=== PATIENT | female | born 1995 ===

== ENCOUNTER 2020-11-09 06:20 | Inpatient (IN) | payer OTHER ==
[2020-11-09] MEDS ORDERED: Sodium Chloride 0.9% 10 ML Syringe FLUSH PRN (06:58)
[2020-11-09] MEDS ORDERED: Sodium Chloride 0.9% 10 ML SDV IV PRN (06:58)
[2020-11-09] MEDS ORDERED: Lactated Ringers 1,000 ML IV SCH (07:00)
[2020-11-09] MEDS ORDERED: Terbutaline 1 MG/ML SDV SUBCUT ONE ×2 (07:26→08:41)
[2020-11-09] MEDS ORDERED: Terbutaline 1 MG/ML SDV ONE (08:33)
--- NOTE | 2020-11-09 09:30 | PCM.OPNOTE ---
- General Post-Op/Procedure Note Date of Surgery/Procedure: 11/09/20 Operative Procedure(s): External cephalic version Findings: Baby in nile breech presentation, baby's head maternal right, normal appearing amniotic fluid, anterior placenta. Unsuccessful after multiple attempts. heart rate reassuring throughout procedure. Pre Op Diagnosis: Breech presentation Post-Op Diagnosis: Breech presentation Anesthesia Technique: Other (see below) (None) Primary Surgeon: Collin Mcintyre Sex Worker Or Escort: Malina Gutierrez Pathology: None EBL in mLs: 0 Complications: None Condition: Good Free Text/Narrative:: 24yo at 37w0d with breech presentation presenting for external cephalic version. Patient found to have nile breech presentation. Growth US in the office with EFW 83%, normal CLIFF and anterior placenta. Discussed risk and benefits of ex ternal cephalic version vs. primary , she desired to proceed with external cephalic version. Reviewed risk of distress, progression in labor, placenta abruption or ROM with the procedure and needing urgent delivery. Consent signed and questions answered. Bedside US confirmed nile breech presentation. She was given terbutaline prior to procedure. She declined epidural anesthesia. Baby oil was applied to the patient abdomen. Multiple attempts to rotate the baby clockwise and counter clockwise, however the breech was engaged in the pelvis and there was limited movement. heart rate was 140-150s through procedure. Procedure was terminated, plan for primary at 39 weeks, discussed with patient concerning signs. Will monitor baby closely for the next few hours.
--- NOTE | 2020-11-09 10:23 | US ---
INDICATION: Attempted external version. TECHNIQUE: Limited transabdominal two-dimensional grayscale ultrasound examination for attempted external version. COMPARISON: None FINDINGS: There is a 3rd trimester living fetus in breech lie. heart rate is measured 153 beats per minute. The attempted external version was not successful. IMPRESSION: Unsuccessful attempted external version of 3rd trimester fetus. Dictated by Delgado Maria MD @ 11/09/2020 10:22:06 AM (Electronically Signed)
== END 2020-11-09 10:45 | disposition home or self-care (01) | DRG 833 ==
LOC: MW.OB 06:20
PROVIDERS: ADMIT Obstetrics & Gynecology; ATTEND Obstetrics & Gynecology
DX: O32.1XX0 Maternal care for breech presentation, not applicable or unspecified (principal); Z3A.37 37 weeks gestation of pregnancy; Z20.822 Contact with and (suspected) exposure to COVID-19
CPT/HCPCS: 36415; 59025; 59412; 76815; 76815-26; 85027; 86850; 86900; 86901; J3105; U0002

== ENCOUNTER 2020-11-21 13:09 | Inpatient (IN) | payer OTHER ==
[2020-11-21] MEDS ORDERED: Butorphanol 1 MG/ML SDV IVPUSH PRN (13:38)
[2020-11-21] MEDS ORDERED: Methylergonovine 0.2 MG/1 ML Amp IM PRN ×2 (13:38→18:43)
[2020-11-21] MEDS ORDERED: Tranexamic Acid 1,000 MG in Sodium Chloride 0.9% 100 ML IV PRN ×2 (13:38→18:43)
[2020-11-21] MEDS ORDERED: Nalbuphine 10 MG/1 ML Vial IVPUSH PRN (13:38)
[2020-11-21] MEDS ORDERED: Lidocaine 1% 50 ML MDV INJECT PRN (13:38)
[2020-11-21] MEDS ORDERED: Carboprost Tromethamine 250 MCG/1 ML Amp IM PRN (13:38)
[2020-11-21] MEDS ORDERED: Sodium Chloride 0.9% 10 ML Syringe FLUSH PRN (13:38)
[2020-11-21] MEDS ORDERED: Sodium Chloride 0.9% 2.5 ML Syringe FLUSH PRN (13:38)
[2020-11-21] MEDS ORDERED: Sodium Chloride 0.9% 10 ML SDV IV PRN (13:38)
[2020-11-21] MEDS ORDERED: Water For Irrigation,Sterile 1,000 ML Container IRR PRN (13:38)
[2020-11-21] MEDS ORDERED: Ondansetron 4 MG/2 ML SDV IVPUSH PRN (13:38)
[2020-11-21] MEDS ORDERED: Oxytocin/0.9 % Sodium Chloride 30 UNIT/500 ML BAG IV SCH (13:45)
[2020-11-21] MEDS: Lactated Ringers 1,000 ML IV SCH ×3 (14:17→21:09)
[2020-11-21 15:11] LABS: BLOOD UREA NITROGEN,BUN 6 mg/dL (7.0-18.0); CARBON DIOXIDE,CO2 23.8 mmol/L (21.0-32.0); CHLORIDE,CL 103 mmol/L (98-107); GLUCOSE RANDOM 73 mg/dL (74-106); POTASSIUM,K 3.9 mmol/L (3.5-5.1); SODIUM,NA 138 mmol/L (136-145)
[2020-11-21] MEDS ORDERED: fentaNYL 100 MCG/2 ML SDV ONE (16:41)
[2020-11-21] MEDS ORDERED: Morphine PF 10 MG/10 ML SDV ONE (16:41)
--- NOTE | 2020-11-21 16:41 | PCM.LDHP ---
L&D History of Present Illness - General Date of Service: 11/21/20 Admit Problem/Dx: Patient Status Order with Admit Dx/Problem 11/21/20 13:10 Patient Status [ADT] Routine Admission Diagnosis/Problem Admission Diagnosis/Problem - History of Present Illness Introduction:: 24yo at 38w5d ZOILA 11/30/20 by 12w6d US presenting with chills and contractions. Patient reports this morning starting noticing chills, this started suddenly, was feeling well yesterday. She also starting noticing stronger and more consistent contractions q1-2min. Denies leakage of fluid. Has some dysuria. was complicated by breech presentation, unsuccessful ECV at 37weeks. EFW 83% on US. She is GBS positive. 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 (See Below) Other OB/BYN History: 2015 - Abnormal PAP Musculoskeletal History: Reports: None Neurological History: Reports: None Psychiatric History: Reports: None Endocrine/Metabolic History: Reports: None Hematologic History: Reports: None Immunologic History: Reports: None Oncologic (Cancer) History: Reports: None Dermatologic History: Reports: Other (See Below) Other Dermatologic History: Acne - Infectious Disease History Infectious Disease History: Reports: Human Papilloma Virus (HPV) - Past Surgical History Head Surgeries/Procedures: Reports: None HEENT Surgical History: Reports: None Cardiovascular Surgical History: Reports: None Respiratory Surgical History: Reports: None GI Surgical History: Reports: None Female Surgical History: Reports: None Endocrine Surgical History: Reports: None Neurological Surgical History: Reports: None Musculoskeletal Surgical History: Reports: None Oncologic Surgical History: Reports: None Dermatological Surgical History: Reports: None Social & Family History - Family History HEENT: Reports: None Cardiac: Reports: Bypass, Hypertension Respiratory: Reports: None GI: Reports: None : Reports: None OBGYN: Reports: None Musculoskeletal: Reports: None Neurological: Reports: Alzheimers Disease, Parkinson's Psychiatric: Reports: None Endocrine/Metabolic: Reports: Diabetes, type II Hematologic: Reports: None Immunologic: Reports: None Dermatologic: Reports: None Oncologic: Reports: Breast, Colon H&P Review of Systems - Review of Systems: Review Of Systems: See Below General: Reports: Fever, Chills HEENT: Reports: No Symptoms Pulmonary: Reports: No Symptoms Cardiovascular: Reports: No Symptoms Gastrointestinal: Reports: No Symptoms Genitourinary: Reports: Dysuria, Urgency Musculoskeletal: Reports: No Symptoms Skin: Reports: No Symptoms Psychiatric: Reports: No Symptoms Neurological: Reports: No Symptoms Hematologic/Lymphatic: Reports: No Symptoms Immunologic: Reports: No Symptoms L&D Exam - Exam Exam: See Below - Vital Signs Weight: 155 lb - OB Specific Contraction Intensity: Moderate Movement: Active Heart Tones per Min: 170 Heart Rate (FHR) Variability: Moderate (6-25 bpm) Presentation: Breech - Johnson Score Johnson Score Cervix Position: Midposition Johnson Score Consistency: Medium Johnson Score Effacement: 31-50% Johnson Score Dilation: 1-2 cm Johnson Score Infant's Station: -3 Johnson Score Total: 4 - Exam General: Alert, Oriented, Cooperative HEENT: Conjunctiva Clear, EACs Clear, Mucosa Moist & [place] Neck: Supple, Trachea Midline Lungs: Clear to Auscultation, Normal Respiratory Effort Cardiovascular: Regular Rate, Regular Rhythm GI/Abdominal Exam: Normal Bowel Sounds, Soft, Non-Tender, No Distention Genitourinary: Normal external exam Back Exam: Normal Inspection Extremities: Normal Inspection, Normal Range of Motion, Non-Tender, No Pedal Edema Skin: Warm, Dry, Intact Psychiatric: Alert, Normal Affect, Normal Mood - Patient Data Lab Results Last 24 hrs: Laboratory Results - last 24 hr 11/21/20 11/21/20 11/21/20 Range/Units 14:25 14:32 14:32 WBC 18.31 H (4.0-11.0) K/uL RBC 4.05 L (4.30-5.90) M/uL Hgb 11.9 L (12.0-16.0) g/dL Hct 34.7 L (36.0-46.0) % MCV 85.7 (80.0-98.0) fL MCH 29.4 (27.0-32.0) pg MCHC 34.3 (31.0-37.0) g/dL RDW Std Deviation 43.4 (28.0-62.0) fl RDW Coeff of Pat 14 (11.0-15.0) % Plt Count 159 (150-400) K/uL MPV 9.20 (7.40-12.00) fL Nucleated RBC % 0.0 /100WBC Nucleated RBCs # 0 K/uL Sodium 138 (136-145) mmol/L Potassium 3.9 (3.5-5.1) mmol/L Chloride 103 (98-107) mmol/L Carbon Dioxide 23.8 (21.0-32.0) mmol/L BUN 6 L (7.0-18.0) mg/dL Creatinine 0.7 (0.6-1.0) mg/dL Est Cr Clr Drug Dosing 96.32 mL/min Estimated GFR (MDRD) > 60.0 ml/min Glucose 73 L (74-106) mg/dL Lactic Acid (0.4-2.0) mmol/L Calcium 8.2 L (8.5-10.1) mg/dL Total Bilirubin 0.4 (0.2-1.0) mg/dL AST 23 (15-37) IU/L ALT 17 (14-63) IU/L Alkaline Phosphatase 111 (46-116) U/L Total Protein 6.5 (6.4-8.2) g/dL Albumin 2.6 L (3.4-5.0) g/dL Globulin 3.9 (2.6-4.0) g/dL Albumin/Globulin Ratio 0.7 L (0.9-1.6) Urine Color Urine Appearance Urine pH (5.0-8.0) Ur Specific [place] (1.001-1.035) Urine Protein (NEGATIVE) mg/dL Urine Glucose (UA) (NEGATIVE) mg/dL Urine Ketones (NEGATIVE) mg/dL Urine Occult Blood (NEGATIVE) Urine Nitrite (NEGATIVE) Urine Bilirubin (NEGATIVE) Urine Urobilinogen (<2.0) EU/dL Ur Leukocyte Esterase (NEGATIVE) Urine RBC (0-2/HPF) Urine WBC (0-5/HPF) Ur Epithelial Cells (NONE-FEW) Amorphous Sediment (NEGATIVE) Urine Bacteria (NEGATIVE) Urine Mucus (NONE-MOD) SARS-CoV-2 RNA (ELISE) NEGATIVE (NEGATIVE) Blood Type Antibody Screen 11/21/20 11/21/20 11/21/20 Range/Units 14:32 14:32 15:05 WBC (4.0-11.0) K/uL RBC (4.30-5.90) M/uL Hgb (12.0-16.0) g/dL Hct (36.0-46.0) % MCV (80.0-98.0) fL MCH (27.0-32.0) pg MCHC (31.0-37.0) g/dL RDW Std Deviation (28.0-62.0) fl RDW Coeff of Pat (11.0-15.0) % Plt Count (150-400) K/uL MPV (7.40-12.00) fL Nucleated RBC % /100WBC Nucleated RBCs # K/uL Sodium (136-145) mmol/L Potassium (3.5-5.1) mmol/L Chloride (98-107) mmol/L Carbon Dioxide (21.0-32.0) mmol/L BUN (7.0-18.0) mg/dL Creatinine (0.6-1.0) mg/dL Est Cr Clr Drug Dosing mL/min Estimated GFR (MDRD) ml/min Glucose (74-106) mg/dL Lactic Acid 1.2 (0.4-2.0) mmol/L Calcium (8.5-10.1) mg/dL Total Bilirubin (0.2-1.0) mg/dL AST (15-37) IU/L ALT (14-63) IU/L Alkaline Phosphatase (46-116) U/L Total Protein (6.4-8.2) g/dL Albumin (3.4-5.0) g/dL Globulin (2.6-4.0) g/dL Albumin/Globulin Ratio (0.9-1.6) Urine Color YELLOW Urine Appearance SLT CLOUDY Urine pH 6.0 (5.0-8.0) Ur Specific [place] 1.015 (1.001-1.035) Urine Protein NEGATIVE (NEGATIVE) mg/dL Urine Glucose (UA) NEGATIVE (NEGATIVE) mg/dL Urine Ketones >=80 (NEGATIVE) mg/dL Urine Occult Blood TRACE-INTACT H (NEGATIVE) Urine Nitrite NEGATIVE (NEGATIVE) Urine Bilirubin NEGATIVE (NEGATIVE) Urine Urobilinogen 0.2 (<2.0) EU/dL Ur Leukocyte Esterase SMALL H (NEGATIVE) Urine RBC 1-3 (0-2/HPF) Urine WBC 2-5 (0-5/HPF) Ur Epithelial Cells MODERATE (NONE-FEW) Amorphous Sediment LIGHT (NEGATIVE) Urine Bacteria 1+ H (NEGATIVE) Urine Mucus LIGHT (NONE-MOD) SARS-CoV-2 RNA (ELISE) (NEGATIVE) Blood Type A POSITIVE Antibody Screen NEGATIVE Result Diagrams: 11/21/20 14:32 11/21/20 14:32 Problem List Initiated/Reviewed/Updated: Yes Orders Last 24hrs: Active Orders 24 hr Category Date Time Status Patient Status [ADT] Routine ADT 11/21/20 13:10 Active Heart Tones [RC] CONTINUOUS Care 11/21/20 13:38 Active Non Stress Test [RC] PER UNIT ROUTINE Care 11/21/20 13:27 Active Notify Provider [RC] PRN Care 11/21/20 13:38 Active Up ad Julissa [RC] ASDIRECTED Care 11/21/20 13:27 Active Vaginal Exam [RC] Click to Edit Care 11/21/20 13:27 Active Vaginal Exam [RC] PRN Care 11/21/20 13:38 Active Vital Signs [RC] PER UNIT ROUTINE Care 11/21/20 13:27 Active CULTURE BLOOD [BC] Stat Lab 11/21/20 16:19 Ordered CULTURE BLOOD [BC] Stat Lab 11/21/20 16:19 Ordered CULTURE URINE [MREF] Stat Lab 11/21/20 16:18 Ordered RPR (SYPHILIS SERO) W/ RFLX [REF] Routine Lab 11/21/20 14:32 Received Ampicillin 2 gm Med 11/21/20 16:30 Ordered Sodium Chloride 0.9% [Normal Saline] 100 ml IV Q6H Butorphanol [Stadol] Med 11/21/20 13:38 Active 1 mg IVPUSH Q1H PRN Carboprost Tromethamine [Hemabate DS] Med 11/21/20 13:38 Active 250 mcg IM ASDIRECTED PRN Clindamycin Phosphate [Cleocin] 900 mg Med 11/21/20 16:30 Ordered Sodium Chloride 0.9% [Normal Saline] 50 ml IV Q8H Gentamicin 80 mg Med 11/21/20 16:30 Ordered Sodium Chloride 0.9% [Normal Saline] 50 ml IV Q8H Lactated Ringers [Ringers, Lactated] 1,000 ml Med 11/21/20 13:45 Active IV ASDIRECTED Lidocaine 1% [Xylocaine 1%] Med 11/21/20 13:38 Active 50 ml INJECT ONETIME PRN Methylergonovine [Methergine] Med 11/21/20 13:38 Active 0.2 mg IM ASDIRECTED PRN Nalbuphine [Nubain] Med 11/21/20 13:38 Active 10 mg IVPUSH Q1H PRN Ondansetron [Zofran] Med 11/21/20 13:38 Active 4 mg IVPUSH Q4H PRN Oxytocin/0.9 % Sodium Chloride [Oxytocin 30 Unit in NS Med 11/21/20 13:45 Active 0.9% 500 ML Premix] 30 unit in 500 ml IV TITRATE Sodium Chloride 0.9% [Normal Saline] Med 11/21/20 13:38 Active 10 ml IV ASDIRECTED PRN Sodium Chloride 0.9% [Saline Flush] Med 11/21/20 13:38 Active 10 ml FLUSH ASDIRECTED PRN Sodium Chloride 0.9% [Saline Flush] Med 11/21/20 13:38 Active 2.5 ml FLUSH ASDIRECTED PRN Tranexamic Acid [Cyklokapron] 1,000 mg Med 11/21/20 13:38 Active Sodium Chloride 0.9% [Normal Saline] 100 ml IV ONETIME Water For Irrigation,Sterile [Sterile Water for Med 11/21/20 13:38 Active Irrigation] 1,000 ml IRR ASDIRECTED PRN Blood Culture x2 Reflex Set [OM.PC] Stat Oth 11/21/20 16:19 Ordered Scalp Electrode [WOMSER] Per Unit Routine Ot 11/21/20 13:38 Ordered Peripheral IV Insertion Adult [OM.PC] Routine Oth 11/21/20 13:38 Ordered Resuscitation Status Routine Resus Stat 11/21/20 13:27 Ordered Medication Orders Butorphanol Tartrate (Butorphanol 1 Mg/Ml Sdv) 1 mg IVPUSH Q1H PRN PRN Reason: Pain (severe 7-10) Carboprost Tromethamine (Carboprost Tromethamine 250 Mcg/1 Ml Amp) 250 mcg IM ASDIRECTED PRN PRN Reason: Post Hemorrhage Lactated Ringer's (Ringers, Lactated) 1,000 mls @ 150 mls/hr IV ASDIRECTED [facility] Last Admin: 11/21/20 14:17 Dose: 999 mls/hr Documented by: JASPAL Oxytocin/Sodium Chloride (Oxytocin 30 Unit In Ns 0.9% 500 Ml Premix) 30 unit in 500 mls @ 500 mls/hr IV TITRATE [facility] Tranexamic Acid 1,000 mg/ (Sodium Chloride) 110 mls @ 660 mls/hr IV ONETIME PRN PRN Reason: Bleeding Ampicillin Sodium 2 gm/ Sodium (Chloride) 100 mls @ 200 mls/hr IV Q6H [facility] Gentamicin Sulfate 290 mg/ (Sodium Chloride) 107.25 mls @ 200 mls/hr IV Q24H [facility] Clindamycin Phosphate 900 mg/ (Premix) 50 mls @ 100 mls/hr IV Q8H [facility] Lidocaine HCl (Lidocaine 1% 50 Ml Mdv) 50 ml INJECT ONETIME PRN PRN Reason: Laceration repair Methylergonovine Maleate (Methylergonovine 0.2 Mg/1 Ml Amp) 0.2 mg IM ASDIRECTED PRN PRN Reason: Post Hemorrhage Nalbuphine HCl (Nalbuphine 10 Mg/1 Ml Vial) 10 mg IVPUSH Q1H PRN PRN Reason: Pain (severe 7-10) Ondansetron HCl (Ondansetron 4 Mg/2 Ml Sdv) 4 mg IVPUSH Q4H PRN PRN Reason: Nausea/Vomiting Sodium Chloride (Sodium Chloride 0.9% 10 Ml Syringe) 10 ml FLUSH ASDIRECTED PRN PRN Reason: Keep Vein Open Sodium Chloride (Sodium Chloride 0.9% 2.5 Ml Syringe) 2.5 ml FLUSH ASDIRECTED PRN PRN Reason: Keep Vein Open Sodium Chloride (Sodium Chloride 0.9% 10 Ml Sdv) 10 ml IV ASDIRECTED PRN PRN Reason: IV Use Sterile Water (Water For Irrigation,Sterile 1,000 Ml Container) 1,000 ml IRR ASDIRECTED PRN PRN Reason: delivery Assessment/Plan Comment:: 24yo at 38w5d presenting with suspected chorioamnionitis and early labor. Breech presentation confirmed with bedside US. - Febrile with temp 101.4, leukocytosis with WBC 18, tachycardia with FHR 160-180s - strong contractions q1-3min - GBS+ - COVID19 negative - Lactate wnl - UA with 1+ bacteria and LE - Given 2L IV fluid bolus, will start treatment for presumed chorioamnionitis with IV ampicillin, gentamycin and clindamycin. Urine and blood culture sent. Discussed with patient she has signs of infection which may be from chorioamni onitis or pyleonephritis, and she is in early labor with breech presentation, would recommend proceeding with delivery due to risks to baby and mother with chorioamnionitis. Patient is agreeable, questions answered. - Anesthesia team and care aide informed. Will proceed to urgently.
[2020-11-21] MEDS: Ampicillin 2 GM in Sodium Chloride 0.9% 100 ML IV SCH ×2 (16:43→23:06)
[2020-11-21] MEDS ORDERED: Octyl 2-Cyanoacrylate 1 Tube ONE (16:51)
[2020-11-21] MEDS ORDERED: Oxytocin 10 Units/1 ML SDV ONE (17:37)
[2020-11-21] MEDS ORDERED: Ondansetron 4 MG/2 ML SDV ONE (17:37)
[2020-11-21] MEDS: Clindamycin Phosphate in D5W 900 MG in Premix Bag 1 BAG IV SCH ×2 (17:50)
[2020-11-21] MEDS ORDERED: Ropivacaine 0.5% 5 MG/ML 30 ML SDV ONE (17:54)
[2020-11-21] MEDS ORDERED: diphenhydrAMINE 50 MG/ML SDV IVPUSH PRN (18:43)
[2020-11-21] MEDS ORDERED: Lanolin 100% Cream 7 GM Tube TOP PRN (18:43)
[2020-11-21] MEDS ORDERED: Bisacodyl 10 MG Supp RECTAL PRN (18:43)
[2020-11-21] MEDS ORDERED: Acetaminophen/oxyCODONE 325-5 MG Tab PO PRN (18:43)
[2020-11-21] MEDS ORDERED: Oxytocin 10 Units/1 ML SDV IM PRN (18:43)
[2020-11-21] MEDS ORDERED: Misoprostol 200 MCG Tab RECTAL PRN (18:43)
--- NOTE | 2020-11-21 18:51 | PCM.OPNOTE ---
- General Post-Op/Procedure Note Date of Surgery/Procedure: 11/21/20 Operative Procedure(s): Primary low transverse section Findings: Normal appearing uterus. Fetus in nile breech presentation, clear fluid. APGARs pending. weight 8lb3oz. Pre Op Diagnosis: [place] intrauterine at 38w5d. Suspected chorioamnionitis. Early labor. Breech presentation Post-Op Diagnosis: [place] intrauterine at 38w5d. Suspected chorioamnionitis. Early labor. Breech presentation Anesthesia Technique: Spinal Primary Surgeon: Collin Mcintyre Anesthesia Provider: Amaury Tinsley Pathology: Placenta Output, Urine Amount: 100 EBL in mLs: 900 Complications: None Condition: Good
--- NOTE | 2020-11-21 19:15 | PCM.PREANE ---
Preanesthetic Assessment - Anesthesia/Transfusion/Family Hx Anesthesia History: No Prior Anesthesia Family History of Anesthesia Reaction: No Transfusion History: No Prior Transfusion(s) - Review of Systems General: No Symptoms Pulmonary: No Symptoms Cardiovascular: No Symptoms Gastrointestinal: No Symptoms Neurological: No Symptoms Other: Reports: None - Physical Assessment Vital Signs: Last Vital Signs Temp 99.5 F 11/21/20 18:30 Pulse 120 H 11/21/20 19:08 Resp 20 11/21/20 19:08 BP 111/79 11/21/20 19:08 Pulse Ox 99 11/21/20 19:08 Height: 5 ft 2 in Weight: 155 lb ASA Class: 3 Mental Status: Alert & Oriented x3 Airway Class: Mallampati = 2 Dentition: Reports: Normal Dentition ROM/Head Extension: Full Lungs: Clear to Auscultation, Normal Respiratory Effort Cardiovascular: Regular Rate, Regular Rhythm - Lab Values: Laboratory Last Values WBC 18.31 K/uL (4.0-11.0) H 11/21/20 14:32 RBC 4.05 M/uL (4.30-5.90) L 11/21/20 14:32 Hgb 11.9 g/dL (12.0-16.0) L 11/21/20 14:32 Hct 34.7 % (36.0-46.0) L 11/21/20 14:32 MCV 85.7 fL (80.0-98.0) 11/21/20 14:32 MCH 29.4 pg (27.0-32.0) 11/21/20 14:32 MCHC 34.3 g/dL (31.0-37.0) 11/21/20 14:32 RDW Std Deviation 43.4 fl (28.0-62.0) 11/21/20 14:32 RDW Coeff of Pat 14 % (11.0-15.0) 11/21/20 14:32 Plt Count 159 K/uL (150-400) 11/21/20 14:32 MPV 9.20 fL (7.40-12.00) 11/21/20 14:32 Nucleated RBC % 0.0 /100WBC 11/21/20 14:32 Nucleated RBCs # 0 K/uL 11/21/20 14:32 Sodium 138 mmol/L (136-145) 11/21/20 14:32 Potassium 3.9 mmol/L (3.5-5.1) 11/21/20 14:32 Chloride 103 mmol/L (98-107) 11/21/20 14:32 Carbon Dioxide 23.8 mmol/L (21.0-32.0) 11/21/20 14:32 BUN 6 mg/dL (7.0-18.0) L 11/21/20 14:32 Creatinine 0.7 mg/dL (0.6-1.0) 11/21/20 14:32 Est Cr Clr Drug Dosing 96.32 mL/min 11/21/20 14:32 Estimated GFR (MDRD) > 60.0 ml/min 11/21/20 14:32 Glucose 73 mg/dL (74-106) L 11/21/20 14:32 Lactic Acid 1.2 mmol/L (0.4-2.0) 11/21/20 14:32 Calcium 8.2 mg/dL (8.5-10.1) L 11/21/20 14:32 Total Bilirubin 0.4 mg/dL (0.2-1.0) 11/21/20 14:32 AST 23 IU/L (15-37) 11/21/20 14:32 ALT 17 IU/L (14-63) 11/21/20 14:32 Alkaline Phosphatase 111 U/L (46-116) 11/21/20 14:32 Total Protein 6.5 g/dL (6.4-8.2) 11/21/20 14:32 Albumin 2.6 g/dL (3.4-5.0) L 11/21/20 14:32 Globulin 3.9 g/dL (2.6-4.0) 11/21/20 14:32 Albumin/Globulin Ratio 0.7 (0.9-1.6) L 11/21/20 14:32 Urine Color YELLOW 11/21/20 15:05 Urine Appearance SLT CLOUDY 11/21/20 15:05 Urine pH 6.0 (5.0-8.0) 11/21/20 15:05 Ur Specific [place] 1.015 (1.001-1.035) 11/21/20 15:05 Urine Protein NEGATIVE mg/dL (NEGATIVE) 11/21/20 15:05 Urine Glucose (UA) NEGATIVE mg/dL (NEGATIVE) 11/21/20 15:05 Urine Ketones >=80 mg/dL (NEGATIVE) 11/21/20 15:05 Urine Occult Blood TRACE-INTACT (NEGATIVE) H 11/21/20 15:05 Urine Nitrite NEGATIVE (NEGATIVE) 11/21/20 15:05 Urine Bilirubin NEGATIVE (NEGATIVE) 11/21/20 15:05 Urine Urobilinogen 0.2 EU/dL (<2.0) 11/21/20 15:05 Ur Leukocyte Esterase SMALL (NEGATIVE) H 11/21/20 15:05 Urine RBC 1-3 (0-2/HPF) 11/21/20 15:05 Urine WBC 2-5 (0-5/HPF) 11/21/20 15:05 Ur Epithelial Cells MODERATE (NONE-FEW) 11/21/20 15:05 Amorphous Sediment LIGHT (NEGATIVE) 11/21/20 15:05 Urine Bacteria 1+ (NEGATIVE) H 11/21/20 15:05 Urine Mucus LIGHT (NONE-MOD) 11/21/20 15:05 SARS-CoV-2 RNA (ELISE) NEGATIVE (NEGATIVE) 11/21/20 14:25 Blood Type A POSITIVE 11/21/20 14:32 Antibody Screen NEGATIVE 11/21/20 14:32 - Allergies Allergies/Adverse Reactions: Allergies Allergy/AdvReac Type Severity Reaction Status Date / Time No Known Allergies Allergy Verified 11/21/20 13:27 - Blood Blood Available: Yes Product(s) Available: PRBC, FFP, Platelets - Anesthesia Plan Pre-Op Medication Ordered: None - Acknowledgements Anesthesia Type Planned: Spinal Pt an Appropriate Candidate for the Planned Anesthesia: Yes Alternatives and Risks of Anesthesia Discussed w Pt/Guardian: Yes Pt/Guardian Understands and Agrees with Anesthesia Plan: Yes PreAnesthesia Questionnaire - Past Health History Medical/Surgical History: Denies Medical/Surgical History HEENT History: Reports: None Cardiovascular History: Reports: None Respiratory History: Reports: None Gastrointestinal History: Reports: Irritable Bowel Syndrome Genitourinary History: Reports: None SOCIAL WORK NURSE History: Reports: Other (See Below) Other OB/BYN History: 2014 - Abnormal PAP Musculoskeletal History: Reports: None Neurological History: Reports: None Psychiatric History: Reports: None Endocrine/Metabolic History: Reports: None Hematologic History: Reports: None Immunologic History: Reports: None Oncologic (Cancer) History: Reports: None Dermatologic History: Reports: Other (See Below) Other Dermatologic History: Acne - Infectious Disease History Infectious Disease History: Reports: Human Papilloma Virus (HPV) - Past Surgical History Head Surgeries/Procedures: Reports: None HEENT Surgical History: Reports: None Cardiovascular Surgical History: Reports: None Respiratory Surgical History: Reports: None GI Surgical History: Reports: None Female Surgical History: Reports: None Endocrine Surgical History: Reports: None Neurological Surgical History: Reports: None Musculoskeletal Surgical History: Reports: None Oncologic Surgical History: Reports: None Dermatological Surgical History: Reports: None - HOME MEDS Home Medications: Home Meds Azelaic Acid [Finacea] 11/09/20 [History] Azelaic Acid [Finacea] 11/09/20 [History] - CURRENT (IN HOUSE) MEDS Current Meds: Current Medications Bisacodyl (Bisacodyl 10 Mg Supp) 10 mg RECTAL ONETIME PRN PRN Reason: Constipation Diphenhydramine HCl (Diphenhydramine 50 Mg/Ml Sdv) 25 mg IVPUSH Q6H PRN PRN Reason: Itching or Nausea Docusate Sodium (Docusate Sodium 100 Mg Cap) 100 mg PO BID [facility] Emollient Ointment (Lanolin 100% Cream 7 Gm Tube) 0 gm TOP ASDIRECTED PRN PRN Reason: Sore Nipples Ampicillin Sodium 2 gm/ Sodium (Chloride) 100 mls @ 200 mls/hr IV Q6H [facility] Last Admin: 11/21/20 16:43 Dose: 200 mls/hr Documented by: Gentamicin Sulfate 290 mg/ (Sodium Chloride) 107.25 mls @ 200 mls/hr IV Q24H [facility] Clindamycin Phosphate 900 mg/ (Premix) 50 mls @ 100 mls/hr IV Q8H [facility] Lactated Ringer's (Ringers, Lactated) 1,000 mls @ 125 mls/hr IV ASDIRECTED [facility] Tranexamic Acid 1,000 mg/ (Sodium Chloride) 110 mls @ 660 mls/hr IV ONETIME PRN PRN Reason: Bleeding Ibuprofen (Ibuprofen 800 Mg Tab) 800 mg PO Q8H PRN PRN Reason: Cramping Ketorolac Tromethamine (Ketorolac 30 Mg/Ml Sdv) 30 mg IVPUSH Q6H [facility] Stop: 11/22/20 18:46 Methylergonovine Maleate (Methylergonovine 0.2 Mg/1 Ml Amp) 0.2 mg IM ONETIME PRN PRN Reason: Excessive Vaginal Bleeding Misoprostol (Misoprostol 200 Mcg Tab) 1,000 mcg RECTAL ONETIME PRN PRN Reason: excessive bleeding Oxycodone/Acetaminophen (Acetaminophen/Oxycodone 325-5 Mg Tab) 1 tab PO Q4H PRN PRN Reason: Pain (severe 7-10) Oxycodone/Acetaminophen (Acetaminophen/Oxycodone 325-5 Mg Tab) 2 tab PO Q4H PRN PRN Reason: Pain (severe 7-10) Oxytocin (Oxytocin 10 Units/1 Ml Sdv) 10 unit IM ASDIRECTED PRN PRN Reason: Excessive Vaginal Bleeding Sodium Chloride (Sodium Chloride 0.9% 10 Ml Syringe) 10 ml FLUSH ASDIRECTED PRN PRN Reason: Keep Vein Open Sodium Chloride (Sodium Chloride 0.9% 2.5 Ml Syringe) 2.5 ml FLUSH ASDIRECTED PRN PRN Reason: Keep Vein Open Sodium Chloride (Sodium Chloride 0.9% 10 Ml Sdv) 10 ml IV ASDIRECTED PRN PRN Reason: IV Use Discontinued Medications Butorphanol Tartrate (Butorphanol 1 Mg/Ml Sdv) 1 mg IVPUSH Q1H PRN PRN Reason: Pain (severe 7-10) Carboprost Tromethamine (Carboprost Tromethamine 250 Mcg/1 Ml Amp) 250 mcg IM ASDIRECTED PRN PRN Reason: Post Hemorrhage Fentanyl (Fentanyl 100 Mcg/2 Ml Sdv) Confirm Administered Dose 100 mcg .ROUTE .[facility] Stop: 11/21/20 16:42 Lactated Ringer's (Ringers, Lactated) 1,000 mls @ 150 mls/hr IV ASDIRECTED [facility] Last Admin: 11/21/20 16:41 Dose: 999 mls/hr Documented by: Oxytocin/Sodium Chloride (Oxytocin 30 Unit In Ns 0.9% 500 Ml Premix) 30 unit in 500 mls @ 500 mls/hr IV TITRATE DELMER Tranexamic Acid 1,000 mg/ (Sodium Chloride) 110 mls @ 660 mls/hr IV ONETIME PRN PRN Reason: Bleeding Lidocaine HCl (Lidocaine 1% 50 Ml Mdv) 50 ml INJECT ONETIME PRN PRN Reason: Laceration repair Lidocaine HCl (Lidocaine 1% 5 Ml Sdv) Confirm Administered Dose 10 ml .ROUTE .[facility] ONE Stop: 11/21/20 17:55 Methylergonovine Maleate (Methylergonovine 0.2 Mg/1 Ml Amp) 0.2 mg IM ASDIRE CTED PRN PRN Reason: Post Hemorrhage Miscellaneous Medication (Phenylephrine Hcl In 0.9% Nacl 1 Mg/10 Ml Syringe) Confirm Administered Dose 2 mg .ROUTE .[facility] ONE Stop: 11/21/20 17:17 Miscellaneous Medication (Phenylephrine Hcl In 0.9% Nacl 1 Mg/10 Ml Syringe) Confirm Administered Dose 1 mg .ROUTE .[facility] ONE Stop: 11/21/20 17:38 Miscellaneous Medication (Phenylephrine Hcl In 0.9% Nacl 1 Mg/10 Ml Syringe) Confirm Administered Dose 1 mg .ROUTE .[facility] ONE Stop: 11/21/20 17:58 Morphine Sulfate (Morphine Pf 10 Mg/10 Ml Sdv) Confirm Administered Dose 10 mg .ROUTE .[facility] ONE Stop: 11/21/20 16:42 Nalbuphine HCl (Nalbuphine 10 Mg/1 Ml Vial) 10 mg IVPUSH Q1H PRN PRN Reason: Pain (severe 7-10) Octyl Cyanoacrylate (Octyl 2-Cyanoacrylate 1 Tube) Confirm Administered Dose 1 applic .ROUTE .[facility] ONE Stop: 11/21/20 16:52 Ondansetron HCl (Ondansetron 4 Mg/2 Ml Sdv) 4 mg IVPUSH Q4H PRN PRN Reason: Nausea/Vomiting Ondansetron HCl (Ondansetron 4 Mg/2 Ml Sdv) Confirm Administered Dose 4 mg .ROUTE .[facility] ONE Stop: 11/21/20 17:38 Oxytocin (Oxytocin 10 Units/1 Ml Sdv) Confirm Administered Dose 30 unit .ROUTE .[facility] ONE Stop: 11/21/20 17:38 Ropivacaine (Ropivacaine 0.5% 5 Mg/Ml 30 Ml Sdv) Confirm Administered Dose 30 ml .ROUTE .[facility] ONE Stop: 11/21/20 17:55 Sterile Water (Water For Irrigation,Sterile 1,000 Ml Container) 1,000 ml IRR ASDIRECTED PRN PRN Reason: delivery Service Provided: Pain Management Free Text/Narrative:: Bilateral TAPS performed at surgeon request and after consent obtained. Blocks were completed in normal fashion utilizing US. Ropivicaine 0.2% 20cc injected in both right and left sides. Pt tolerated procedure very well.
--- NOTE | 2020-11-21 19:16 | PCM.POSTAN ---
POST ANESTHESIA ASSESSMENT - MENTAL STATUS Mental Status: Alert, Oriented - VITAL SIGNS Vital Signs: Last Vital Signs Temp 99.5 F 11/21/20 18:30 Pulse 120 H 11/21/20 19:08 Resp 20 11/21/20 19:08 BP 111/79 11/21/20 19:08 Pulse Ox 99 11/21/20 19:08 - RESPIRATORY Respiratory Status: Respiratory Rate WNL, Airway Patent, O2 Saturation Stable - CARDIOVASCULAR CV Status: Pulse Rate WNL, Blood Pressure Stable - GASTROINTESTINAL GI Status: No Symptoms - POST OP HYDRATION Hydration Status: Adequate & Stable
[2020-11-21] MEDS: Docusate Sodium 100 MG Cap PO SCH (23:07)
[2020-11-22] MEDS: Ketorolac 30 MG/ML SDV IVPUSH SCH ×4 (00:32→17:23)
[2020-11-22] MEDS: Clindamycin Phosphate in D5W 900 MG in Premix Bag 1 BAG IV SCH ×4 (01:56→09:30)
--- NOTE | 2020-11-22 01:58 | OR ---
SURGEON: Collin Mcintyre MD DATE OF PROCEDURE: 11/21/2020 INDICATION FOR PROCEDURE: 24-year-old G1, P0 at 38 weeks and 5 days presenting with early labor and suspected chorioamnionitis. The patient called reporting she had chills starting from this morning. She denies having a fever. She also began to have stronger and stronger contractions every 1 to 2 minutes. She denies recent sick contacts. Had recently had a negative COVID-19 test, denies other COVID symptoms. After arriving to Labor and Delivery, she was found to be 1 to 2 cm dilated with regular contractions, and the baby was tachycardic with a baseline of 160s to 180s that was reactive. She initially was not febrile. She was given 2 L of fluid bolus with some improvement in the baseline to 160s. Labs showed leukocytosis with WBC of 18. Normal lactic acid and UA with signs of infection with bacteria and leukocyte esterase. The baby has been in nile breech presentation. She had an external cephalic version at 37 weeks, which was unsuccessful. The baby was again confirmed to be nile breech on bedside ultrasound. After about 2 hours, had a temperature of 101.6. She otherwise had uncomplicated . She is GBS positive. She was started on IV ampillcin, gentamycin and clindamycin. Discussed with the patient considering she has signs of early labor with chorioamnionitis, recommended proceeding with a primary section to prevent further complications with the mother and the baby with continued infection as well as progressing further into labor with breech presentation. She was agreeable to proceed. PREOPERATIVE DIAGNOSES: 1. Grimes intrauterine at 38 weeks and 5 days. 2. Suspected chorioamnionitis. 3. Early labor. 4. Breech presentation. POSTOPERATIVE DIAGNOSES: 1. Grimes intrauterine at 38 weeks and 5 days. 2. Suspected chorioamnionitis. 3. Early labor. 4. Breech presentation. PROCEDURE PERFORMED: Primary low transverse section. ANESTHESIOLOGISTS: Dr. Amaury Tinsley and Ron Leon CRNA ANESTHESIA: Spinal. FINDINGS: Viable male . score of 8/9. weight of 3710g. The amniotic fluid was clear ESTIMATED BLOOD LOSS: 900 mL. URINE OUTPUT: 100 mL. DESCRIPTION OF THE PROCEDURE: The procedure was discussed with the patient. The risks include bleeding, infection, DVTs, injury to surrounding organs including bladder, bowel, and ureters. The patient expressed understanding. Questions answered and consent signed. The patient was brought to the operating room. She received ampicillin, gentamicin, and clindamycin for treatment of chorioamnionitis. She received SCDs. Spinal anesthesia was performed. Caal was placed. The abdomen was prepped with chlorhexidine in sterile fashion and draped and tested for anesthesia. The spinal was found to be adequate. A Pfannenstiel incision was made with a scalpel and dissected down to fascia. Multiple sites of bleeding were noted and cauterized. The fascia was cleared of subcutaneous tissue. The fascia was incised in the midline and extended laterally with curved Meredith scissors. Dawood clamps were placed on the superior fascial edge. The rectus muscles were from the fascia by blunt dissection and using Meredith scissors. The rectus muscles were in the inferior edge in the same fashion. The rectus muscle was carefully in the midline bluntly and the peritoneum was identified and an opening was made bluntly. The Hola O retractor was placed in the peritoneal cavity. The bladder was noted to be away from the lower uterine segment. The uterus was incised transversely at the lower uterine segment using the scalpel. The uterus was extended laterally by stretching. Clear amniotic fluid was noted. 's hips were grasped and turned to sacrum anterior, then brought out of the hysterotomy, followed by the delivery of both of the legs. The baby was then rotated anteriorly, so the right shoulder and arm were delivered. Then, the left shoulder was brought anteriorly and the arm delivered in similar fashion. The hips were then elevated and the baby's head delivered by flexing the chin. Nose and mouth were suctioned. The umbilical cord was clamped and cut after 60 seconds and no longer pulsating. The infant was brought over to the nursery staff. The baby was pink, crying, and moving all extremities immediately after delivery. The cord gases were obtained. The placenta was delivered with gentle traction on the umbilical cord. It was intact with 3-vessel cord. The uterus was cleared of all remaining membranes with a clean lap. The Allis clamps were used to grasp the angles and lower edges of the incision. The uterine incision was closed in running locking fashion using 0 Monocryl. A second layer was placed in vertical imbricated fashion. Hemostasis was confirmed and the uterus was firm. The paracolic gutters were cleared of any clots. Sterile water was used to irrigate the incision. The incision was checked again for hemostasis. The Hola O retractor was then removed from the peritoneal cavity. The peritoneum was brought together to the midline by grasping with hemostats. It was closed with 2-0 Vicryl in running fashion. The rectus muscle was reapproximated with mattress stitches. The rectus muscle was examined and found to be hemostatic. The fascia was closed using 0 Vicryl suture. The subcutaneous tissue was irrigated and bleeding area was cauterized. The subcutaneous layer was brought together with 2-0 plain suture. The skin was closed subcuticularly with 3-0 Monocryl on a Ulises needle. Telfa and ABD pressure dressing were placed over the incision. The patient received a TAP block under ultrasound guidance with anesthesia. The patient was stable during the procedure and transferred to recovery room. SHERIF ABBOTT /[id number] CHELA
[2020-11-22] MEDS ORDERED: Ondansetron 4 MG/2 ML SDV IVPUSH PRN (04:11)
[2020-11-22] MEDS: Lactated Ringers 1,000 ML IV SCH ×2 (04:55→09:30)
[2020-11-22] MEDS: Ampicillin 2 GM in Sodium Chloride 0.9% 100 ML IV SCH ×2 (05:11→10:39)
--- NOTE | 2020-11-22 08:58 | PCM.PNPP ---
- General Info Date of Service: 11/22/20 Functional Status: Reports: Pain Controlled, Tolerating Diet, Ambulating, Other (UO has been low overnight, received 500cc bolus at 5AM with 300cc output after. Urine appears concentrated with sediments. No fevers overnight, no longer having chills. Having episodes of nausea with movement, tolerating clears. ) - Review of Systems General: Reports: Chills HEENT: Reports: No Symptoms Pulmonary: Reports: No Symptoms Cardiovascular: Reports: No Symptoms Gastrointestinal: Reports: Nausea Genitourinary: Reports: No Symptoms Musculoskeletal: Reports: No Symptoms Skin: Reports: No Symptoms Neurological: Reports: No Symptoms Psychiatric: Reports: No Symptoms - Patient Data Vital Signs - Most Recent: Last Vital Signs Temp 36.2 C 11/22/20 07:58 Pulse 75 11/22/20 07:58 Resp 18 11/22/20 07:58 BP 92/57 L 11/22/20 07:58 Pulse Ox 96 11/22/20 07:58 Weight - Most Recent: 155 lb I&O - Last 24 Hours: Intake & Output 11/21/20 11/22/20 11/22/20 22:59 06:59 14:59 Intake Total 1650 Output Total 200 Balance 1450 Lab Results - Last 24 Hours: Laboratory Results - last 24 hr 11/21/20 11/21/20 11/21/20 Range/Units 14:25 14:32 14:32 WBC 18.31 H (4.0-11.0) K/uL RBC 4.05 L (4.30-5.90) M/uL Hgb 11.9 L (12.0-16.0) g/dL Hct 34.7 L (36.0-46.0) % MCV 85.7 (80.0-98.0) fL MCH 29.4 (27.0-32.0) pg MCHC 34.3 (31.0-37.0) g/dL RDW Std Deviation 43.4 (28.0-62.0) fl RDW Coeff of Pat 14 (11.0-15.0) % Plt Count 159 (150-400) K/uL MPV 9.20 (7.40-12.00) fL Nucleated RBC % 0.0 /100WBC Nucleated RBCs # 0 K/uL Sodium 138 (136-145) mmol/L Potassium 3.9 (3.5-5.1) mmol/L Chloride 103 (98-107) mmol/L Carbon Dioxide 23.8 (21.0-32.0) mmol/L BUN 6 L (7.0-18.0) mg/dL Creatinine 0.7 (0.6-1.0) mg/dL Est Cr Clr Drug Dosing 96.32 mL/min Estimated GFR (MDRD) > 60.0 ml/min Glucose 73 L (74-106) mg/dL Lactic Acid (0.4-2.0) mmol/L Calcium 8.2 L (8.5-10.1) mg/dL Total Bilirubin 0.4 (0.2-1.0) mg/dL AST 23 (15-37) IU/L ALT 17 (14-63) IU/L Alkaline Phosphatase 111 (46-116) U/L Total Protein 6.5 (6.4-8.2) g/dL Albumin 2.6 L (3.4-5.0) g/dL Globulin 3.9 (2.6-4.0) g/dL Albumin/Globulin Ratio 0.7 L (0.9-1.6) Urine Color Urine Appearance Urine pH (5.0-8.0) Ur Specific [place] (1.001-1.035) Urine Protein (NEGATIVE) mg/dL Urine Glucose (UA) (NEGATIVE) mg/dL Urine Ketones (NEGATIVE) mg/dL Urine Occult Blood (NEGATIVE) Urine Nitrite (NEGATIVE) Urine Bilirubin (NEGATIVE) Urine Urobilinogen (<2.0) EU/dL Ur Leukocyte Esterase (NEGATIVE) Urine RBC (0-2/HPF) Urine WBC (0-5/HPF) Ur Epithelial Cells (NONE-FEW) Amorphous Sediment (NEGATIVE) Urine Bacteria (NEGATIVE) Urine Mucus (NONE-MOD) SARS-CoV-2 RNA (ELISE) NEGATIVE (NEGATIVE) Blood Type Antibody Screen 11/21/20 11/21/20 11/21/20 Range/Units 14:32 14:32 15:05 WBC (4.0-11.0) K/uL RBC (4.30-5.90) M/uL Hgb (12.0-16.0) g/dL Hct (36.0-46.0) % MCV (80.0-98.0) fL MCH (27.0-32.0) pg MCHC (31.0-37.0) g/dL RDW Std Deviation (28.0-62.0) fl RDW Coeff of Pat (11.0-15.0) % Plt Count (150-400) K/uL MPV (7.40-12.00) fL Nucleated RBC % /100WBC Nucleated RBCs # K/uL Sodium (136-145) mmol/L Potassium (3.5-5.1) mmol/L Chloride (98-107) mmol/L Carbon Dioxide (21.0-32.0) mmol/L BUN (7.0-18.0) mg/dL Creatinine (0.6-1.0) mg/dL Est Cr Clr Drug Dosing mL/min Estimated GFR (MDRD) ml/min Glucose (74-106) mg/dL Lactic Acid 1.2 (0.4-2.0) mmol/L Calcium (8.5-10.1) mg/dL Total Bilirubin (0.2-1.0) mg/dL AST (15-37) IU/L ALT (14-63) IU/L Alkaline Phosphatase (46-116) U/L Total Protein (6.4-8.2) g/dL Albumin (3.4-5.0) g/dL Globulin (2.6-4.0) g/dL Albumin/Globulin Ratio (0.9-1.6) Urine Color YELLOW Urine Appearance SLT CLOUDY Urine pH 6.0 (5.0-8.0) Ur Specific [place] 1.015 (1.001-1.035) Urine Protein NEGATIVE (NEGATIVE) mg/dL Urine Glucose (UA) NEGATIVE (NEGATIVE) mg/dL Urine Ketones >=80 (NEGATIVE) mg/dL Urine Occult Blood TRACE-INTACT H (NEGATIVE) Urine Nitrite NEGATIVE (NEGATIVE) Urine Bilirubin NEGATIVE (NEGATIVE) Urine Urobilinogen 0.2 (<2.0) EU/dL Ur Leukocyte Esterase SMALL H (NEGATIVE) Urine RBC 1-3 (0-2/HPF) Urine WBC 2-5 (0-5/HPF) Ur Epithelial Cells MODERATE (NONE-FEW) Amorphous Sediment LIGHT (NEGATIVE) Urine Bacteria 1+ H (NEGATIVE) Urine Mucus LIGHT (NONE-MOD) SARS-CoV-2 RNA (ELISE) (NEGATIVE) Blood Type A POSITIVE Antibody Screen NEGATIVE 11/22/20 Range/Units 05:47 WBC (4.0-11.0) K/uL RBC (4.30-5.90) M/uL Hgb 8.2 L (12.0-16.0) g/dL Hct 23.5 L (36.0-46.0) % MCV (80.0-98.0) fL MCH (27.0-32.0) pg MCHC (31.0-37.0) g/dL RDW Std Deviation (28.0-62.0) fl RDW Coeff of Pat (11.0-15.0) % Plt Count (150-400) K/uL MPV (7.40-12.00) fL Nucleated RBC % /100WBC Nucleated RBCs # K/uL Sodium (136-145) mmol/L Potassium (3.5-5.1) mmol/L Chloride (98-107) mmol/L Carbon Dioxide (21.0-32.0) mmol/L BUN (7.0-18.0) mg/dL Creatinine (0.6-1.0) mg/dL Est Cr Clr Drug Dosing mL/min Estimated GFR (MDRD) ml/min Glucose (74-106) mg/dL Lactic Acid (0.4-2.0) mmol/L Calcium (8.5-10.1) mg/dL Total Bilirubin (0.2-1.0) mg/dL AST (15-37) IU/L ALT (14-63) IU/L Alkaline Phosphatase (46-116) U/L Total Protein (6.4-8.2) g/dL Albumin (3.4-5.0) g/dL Globulin (2.6-4.0) g/dL Albumin/Globulin Ratio (0.9-1.6) Urine Color Urine Appearance Urine pH (5.0-8.0) Ur Specific [place] (1.001-1.035) Urine Protein (NEGATIVE) mg/dL Urine Glucose (UA) (NEGATIVE) mg/dL Urine Ketones (NEGATIVE) mg/dL Urine Occult Blood (NEGATIVE) Urine Nitrite (NEGATIVE) Urine Bilirubin (NEGATIVE) Urine Urobilinogen (<2.0) EU/dL Ur Leukocyte Esterase (NEGATIVE) Urine RBC (0-2/HPF) Urine WBC (0-5/HPF) Ur Epithelial Cells (NONE-FEW) Amorphous Sediment (NEGATIVE) Urine Bacteria (NEGATIVE) Urine Mucus (NONE-MOD) SARS-CoV-2 RNA (ELISE) (NEGATIVE) Blood Type Antibody Screen Med Orders - Current: Current Medications Bisacodyl (Bisacodyl 10 Mg Supp) 10 mg RECTAL ONETIME PRN PRN Reason: Constipation Diphenhydramine HCl (Diphenhydramine 50 Mg/Ml Sdv) 25 mg IVPUSH Q6H PRN PRN Reason: Itching or Nausea Docusate Sodium (Docusate Sodium 100 Mg Cap) 100 mg PO BID [facility] Last Admin: 11/21/20 23:07 Dose: 100 mg Documented by: Emollient Ointment (Lanolin 100% Cream 7 Gm Tube) 0 gm TOP ASDIRECTED PRN PRN Reason: Sore Nipples Ampicillin Sodium 2 gm/ Sodium (Chloride) 100 mls @ 200 mls/hr IV Q6H [facility] Last Admin: 11/22/20 05:11 Dose: 200 mls/hr Documented by: Gentamicin Sulfate 290 mg/ (Sodium Chloride) 107.25 mls @ 200 mls/hr IV Q24H [facility] Clindamycin Phosphate 900 mg/ (Premix) 50 mls @ 100 mls/hr IV Q8H [facility] Last Admin: 11/22/20 01:56 Dose: 100 mls/hr Documented by: Lactated Ringer's (Ringers, Lactated) 1,000 mls @ 125 mls/hr IV ASDIRECTED [facility] Last Admin: 11/22/20 04:55 Dose: 125 mls/hr Documented by: Tranexamic Acid 1,000 mg/ (Sodium Chloride) 110 mls @ 660 mls/hr IV ONETIME PRN PRN Reason: Bleeding Ibuprofen (Ibuprofen 800 Mg Tab) 800 mg PO Q8H PRN PRN Reason: Cramping Ketorolac Tromethamine (Ketorolac 30 Mg/Ml Sdv) 30 mg IVPUSH Q6H [facility] Stop: 11/22/20 17:31 Last Admin: 11/22/20 06:05 Dose: 30 mg Documented by: Methylergonovine Maleate (Methylergonovine 0.2 Mg/1 Ml Amp) 0.2 mg IM ONETIME PRN PRN Reason: Excessive Vaginal Bleeding Misoprostol (Misoprostol 200 Mcg Tab) 1,000 mcg RECTAL ONETIME PRN PRN Reason: excessive bleeding Ondansetron HCl (Ondansetron 4 Mg/2 Ml Sdv) 4 mg IVPUSH Q4H PRN PRN Reason: Nausea/Vomiting Last Admin: 11/22/20 04:54 Dose: 4 mg Documented by: Oxycodone/Acetaminophen (Acetaminophen/Oxycodone 325-5 Mg Tab) 1 tab PO Q4H PRN PRN Reason: Pain (severe 7-10) Oxycodone/Acetaminophen (Acetaminophen/Oxycodone 325-5 Mg Tab) 2 tab PO Q4H PRN PRN Reason: Pain (severe 7-10) Oxytocin (Oxytocin 10 Units/1 Ml Sdv) 10 unit IM ASDIRECTED PRN PRN Reason: Excessive Vaginal Bleeding Sodium Chloride (Sodium Chloride 0.9% 10 Ml Syringe) 10 ml FLUSH ASDIRECTED PRN PRN Reason: Keep Vein Open Sodium Chloride (Sodium Chloride 0.9% 2.5 Ml Syringe) 2.5 ml FLUSH ASDIRECTED PRN PRN Reason: Keep Vein Open Sodium Chloride (Sodium Chloride 0.9% 10 Ml Sdv) 10 ml IV ASDIRECTED PRN PRN Reason: IV Use Discontinued Medications Butorphanol Tartrate (Butorphanol 1 Mg/Ml Sdv) 1 mg IVPUSH Q1H PRN PRN Reason: Pain (severe 7-10) Carboprost Tromethamine (Carboprost Tromethamine 250 Mcg/1 Ml Amp) 250 mcg IM ASDIRECTED PRN PRN Reason: Post Hemorrhage Fentanyl (Fentanyl 100 Mcg/2 Ml Sdv) Confirm Administered Dose 100 mcg .ROUTE .[facility] Stop: 11/21/20 16:42 Lactated Ringer's (Ringers, Lactated) 1,000 mls @ 150 mls/hr IV ASDIRECTED [facility] Last Admin: 11/21/20 16:41 Dose: 999 mls/hr Documented by: Oxytocin/Sodium Chloride (Oxytocin 30 Unit In Ns 0.9% 500 Ml Premix) 30 unit in 500 mls @ 500 mls/hr IV TITRATE [facility] Tranexamic Acid 1,000 mg/ (Sodium Chloride) 110 mls @ 660 mls/hr IV ONETIME PRN PRN Reason: Bleeding Lidocaine HCl (Lidocaine 1% 50 Ml Mdv) 50 ml INJECT ONETIME PRN PRN Reason: Laceration repair Lidocaine HCl (Lidocaine 1% 5 Ml Sdv) Confirm Administered Dose 10 ml .ROUTE .STK-MED ONE Stop: 11/21/20 17:55 Methylergonovine Maleate (Methylergonovine 0.2 Mg/1 Ml Amp) 0.2 mg IM ASDIRECTED PRN PRN Reason: Post Hemorrhage Miscellaneous Medication (Phenylephrine Hcl In 0.9% Nacl 1 Mg/10 Ml Syringe) Confirm Administered Dose 2 mg .ROUTE .STK-MED ONE Stop: 11/21/20 17:17 Miscellaneous Medication (Phenylephrine Hcl In 0.9% Nacl 1 Mg/10 Ml Syringe) Confirm Administered Dose 1 mg .ROUTE .STK-MED ONE Stop: 11/21/20 17:38 Miscellaneous Medication (Phenylephrine Hcl In 0.9% Nacl 1 Mg/10 Ml Syringe) Confirm Administered Dose 1 mg .ROUTE .STK-MED ONE Stop: 11/21/20 17:58 Morphine Sulfate (Morphine Pf 10 Mg/10 Ml Sdv) Confirm Administered Dose 10 mg .ROUTE .STK-MED ONE Stop: 11/21/20 16:42 Nalbuphine HCl (Nalbuphine 10 Mg/1 Ml Vial) 10 mg IVPUSH Q1H PRN PRN Reason: Pain (severe 7-10) Octyl Cyanoacrylate (Octyl 2-Cyanoacrylate 1 Tube) Confirm Administered Dose 1 applic .ROUTE .STK-MED ONE Stop: 11/21/20 16:52 Ondansetron HCl (Ondansetron 4 Mg/2 Ml Sdv) 4 mg IVPUSH Q4H PRN PRN Reason: Nausea/Vomiting Ondansetron HCl (Ondansetron 4 Mg/2 Ml Sdv) Confirm Administered Dose 4 mg .ROUTE .STK-MED ONE Stop: 11/21/20 17:38 Oxytocin (Oxytocin 10 Units/1 Ml Sdv) Confirm Administered Dose 30 unit .ROUTE .STK-MED ONE Stop: 11/21/20 17:38 Ropivacaine (Ropivacaine 0.5% 5 Mg/Ml 30 Ml Sdv) Confirm Administered Dose 30 ml .ROUTE .STK-MED ONE Stop: 11/21/20 17:55 Sterile Water (Water For Irrigation,Sterile 1,000 Ml Container) 1,000 ml IRR ASDIRECTED PRN PRN Reason: delivery - Infant Interaction Infant Disposition, : in Room with Family Support Person: - Recovery Exam Fundal Tone: Firm Fundal Level: 1 Fingerbreadths Below Umbilicus Fundal Placement: Midline Lochia Amount: Small Lochia Color: Rubra/Red Bladder Status: Indwelling Catheter in Place - Exam General: Alert, Oriented, Cooperative, No Acute Distress HEENT: Pupils Equal, Pupils Reactive, EOMI Neck: Supple, Trachea Midline, No JVD Lungs: Clear to Auscultation, Normal Respiratory Effort Cardiovascular: Regular Rate, Regular Rhythm, No Murmurs GI/Abdominal Exam: Normal Bowel Sounds, Soft, Non-Tender, No Distention Extremities: Normal Inspection, Normal Range of Motion, Non-Tender, No Pedal Edema Skin: Warm, Dry, Intact Wound/Incisions: Dressing Dry and Intact Neurological: No New Focal Deficit Psy/Mental Status: Alert, Normal Affect, Normal Mood - Problem List Review Problem List Initiated/Reviewed/Updated: Yes - My Orders Last 24 Hours: My Active Orders 11/21/20 13:27 Up ad Julissa [RC] ASDIRECTED Vital Signs [RC] PER UNIT ROUTINE Resuscitation Status Routine 11/21/20 13:38 Sodium Chloride 0.9% [Normal Saline] 10 ml IV ASDIRECTED PRN Sodium Chloride 0.9% [Saline Flush] 10 ml FLUSH ASDIRECTED PRN Sodium Chloride 0.9% [Saline Flush] 2.5 ml FLUSH ASDIRECTED PRN Peripheral IV Insertion Adult [OM.PC] Routine 11/21/20 14:32 RPR (SYPHILIS SERO) W/ RFLX [REF] Routine 11/21/20 15:05 CULTURE URINE [MREF] Stat 11/21/20 16:19 Blood Culture x2 Reflex Set [OM.PC] Stat 11/21/20 16:30 Ampicillin 2 gm Sodium Chloride 0.9% [Normal Saline] 100 ml IV Q6H 11/21/20 16:31 CULTURE BLOOD [BC] Stat 11/21/20 16:35 CULTURE BLOOD [BC] Stat 11/21/20 17:00 Clindamycin Phosphate in D5W [Cleocin in D5W 900 MG/50 ML] 900 mg Premix Bag 1 bag IV Q8H 11/21/20 17:30 Gentamicin 290 mg Sodium Chloride 0.9% [Normal Saline] 100 ml IV Q24H 11/21/20 18:43 Patient Status [ADT] Routine Ambulate [RC] PER UNIT ROUTINE Communication Order [RC] PER UNIT ROUTINE Communication Order [RC] PER UNIT ROUTINE Communication Order [RC] Per Unit Routine Intake and Output [RC] Q4H May Shower [RC] ASDIRECTED Notify Provider Intake and Out [RC] ASDIRECTED Notify Provider Vital Signs [RC] ASDIRECTED RT Incentive Spirometry [RC] Q2HWA Acetaminophen/oxyCODONE [Percocet 325-5 MG] 1 tab PO Q4H PRN Acetaminophen/oxyCODONE [Percocet 325-5 MG] 2 tab PO Q4H PRN Lanolin [Lansinoh HPA] See Dose Instructions TOP ASDIRECTED PRN Methylergonovine [Methergine] 0.2 mg IM ONETIME PRN Oxytocin [Pitocin] 10 unit IM ASDIRECTED PRN Tranexamic Acid [Cyklokapron] 1,000 mg Sodium Chloride 0.9% [Normal Saline] 100 ml IV ONETIME bisacodyL [Dulcolax] 10 mg RECTAL ONETIME PRN diphenhydrAMINE [Benadryl] 25 mg IVPUSH Q6H PRN miSOPROStoL [Cytotec] 1,000 mcg RECTAL ONETIME PRN Assess Lochia [WOMSER] Per Unit Routine Assess Uterine Involution [WOMSER] Per Unit Routine Breast Pump [WOMSER] Per Unit Routine Peripheral IV Discontinue [OM.PC] Routine Sequential Compression Device [OM.PC] Per Unit Routine 11/21/20 18:44 Antiembolic Devices [RC] PER UNIT ROUTINE Abdominal Binder [OM.PC] Per Unit Routine 11/21/20 18:45 Lactated Ringers [Ringers, Lactated] 1,000 ml IV ASDIRECTED 11/21/20 21:00 Docusate Sodium [Colace] 100 mg PO BID 11/21/20 23:30 Ketorolac [Toradol] 30 mg IVPUSH Q6H 11/23/20 05:00 CBC WITH AUTO DIFF [HEME] Routine 11/23/20 23:00 Ibuprofen [Motrin] 800 mg PO Q8H PRN - Assessment Assessment:: 24yo POD1 s/p primary LTCS due to early labor, breech presentation and suspected chorioamnionitis vs pyleonephritis. - Plan Plan:: - no fevers overnight, leukocytosis increasing today with WBC of 28 - urine output was low overnight but did respond to fluid bolus, cultures pending - lactate wnl - Hgb 8.5 this AM, bleeding light, will monitor with serial CBCs - will stop ampicillin and clindamycin, continue gentamycin and start zosyn - ambulating and tolerating clears, nausea is improving Will continue to monitor closely inpatient.
[2020-11-22] MEDS ORDERED: Lactated Ringers 500 ML IV SCH (09:00)
[2020-11-22] MEDS: Docusate Sodium 100 MG Cap PO SCH ×2 (09:31→21:19)
[2020-11-22 10:29] LABS: BLOOD UREA NITROGEN,BUN 11 mg/dL (7.0-18.0); CARBON DIOXIDE,CO2 24.6 mmol/L (21.0-32.0); CHLORIDE,CL 105 mmol/L (98-107); GLUCOSE RANDOM 97 mg/dL (74-106); POTASSIUM,K 4.3 mmol/L (3.5-5.1); SODIUM,NA 139 mmol/L (136-145)
[2020-11-22] MEDS ORDERED: Lactated Ringers 1,000 ML IV SCH (13:00)
[2020-11-22] MEDS: Piperacillin/Tazobactam 4.5 GM in Sodium Chloride 0.9% 100 ML IV SCH ×2 (13:39→18:51)
[2020-11-23] MEDS ORDERED: Ibuprofen 800 MG Tab ONE (00:14)
[2020-11-23] MEDS: Piperacillin/Tazobactam 4.5 GM in Sodium Chloride 0.9% 100 ML IV SCH ×4 (00:18→18:31)
[2020-11-23] MEDS: Acetaminophen/oxyCODONE 325-5 MG Tab PO PRN ×3 (02:40→16:11)
[2020-11-23 06:40] LABS: BLOOD UREA NITROGEN,BUN 12 mg/dL (7.0-18.0); CARBON DIOXIDE,CO2 26.8 mmol/L (21.0-32.0); CHLORIDE,CL 108 mmol/L (98-107); GLUCOSE RANDOM 83 mg/dL (74-106); POTASSIUM,K 3.8 mmol/L (3.5-5.1); SODIUM,NA 142 mmol/L (136-145)
--- NOTE | 2020-11-23 08:57 | PCM.PNPP ---
- General Info Date of Service: 11/23/20 Functional Status: Reports: Pain Controlled, Tolerating Diet, Ambulating, Urinating, Other (BP was low last night, patient denies feeling dizzy or weak. Had more pain overnight, improving with percocets.) - Review of Systems General: Reports: No Symptoms HEENT: Reports: No Symptoms Pulmonary: Reports: No Symptoms Cardiovascular: Reports: No Symptoms Gastrointestinal: Reports: No Symptoms Genitourinary: Reports: No Symptoms Musculoskeletal: Reports: No Symptoms Skin: Reports: No Symptoms Neurological: Reports: No Symptoms Psychiatric: Reports: No Symptoms - Patient Data Vital Signs - Most Recent: Last Vital Signs Temp 36.6 C 11/23/20 07:57 Pulse 70 11/23/20 07:57 Resp 18 11/23/20 07:57 BP 91/52 L 11/23/20 07:57 Pulse Ox 97 11/23/20 07:57 Weight - Most Recent: 155 lb I&O - Last 24 Hours: Intake & Output 11/22/20 11/23/20 11/23/20 22:59 06:59 14:59 Output Total 1050 Balance -1050 Lab Results - Last 24 Hours: Laboratory Results - last 24 hr 11/22/20 11/22/20 11/22/20 Range/Units 09:30 09:30 09:30 WBC 29.45 H (4.0-11.0) K/uL RBC 2.57 L (4.30-5.90) M/uL Hgb 7.5 L (12.0-16.0) g/dL Hct 21.6 L (36.0-46.0) % MCV 84.0 (80.0-98.0) fL MCH 29.2 (27.0-32.0) pg MCHC 34.7 (31.0-37.0) g/dL RDW Std Deviation 42.8 (28.0-62.0) fl RDW Coeff of Pat 14 (11.0-15.0) % Plt Count 175 (150-400) K/uL MPV 8.80 (7.40-12.00) fL Add Manual Diff Neutrophils % (Manual) 85 H (48.0-80.0) % Band Neutrophils % 3 % Lymphocytes % (Manual) 5 L (16.0-40.0) % Monocytes % (Manual) (0.0-15.0) % Eosinophils % (Manual) 7 (0.0-7.0) % Nucleated RBC % 0.0 /100WBC Absolute Seg Neuts 25.0 H (1.4-5.7) Band Neutrophils # 0.9 Lymphocytes # (Manual) 1.5 (0.6-2.4) Monocytes # (Manual) (0.0-0.8) Eosinophils # (Manual) 2.1 H (0.0-0.7) Sodium 139 (136-145) mmol/L Potassium 4.3 (3.5-5.1) mmol/L Chloride 105 (98-107) mmol/L Carbon Dioxide 24.6 (21.0-32.0) mmol/L BUN 11 (7.0-18.0) mg/dL Creatinine 0.8 (0.6-1.0) mg/dL Est Cr Clr Drug Dosing 84.28 mL/min Estimated GFR (MDRD) > 60.0 ml/min Glucose 97 (74-106) mg/dL Lactic Acid 1.9 (0.4-2.0) mmol/L Calcium 7.5 L (8.5-10.1) mg/dL Total Bilirubin 0.3 (0.2-1.0) mg/dL AST 22 (15-37) IU/L ALT 14 (14-63) IU/L Alkaline Phosphatase 73 (46-116) U/L Total Protein 4.3 L (6.4-8.2) g/dL Albumin 1.8 L (3.4-5.0) g/dL Globulin 2.5 L (2.6-4.0) g/dL Albumin/Globulin Ratio 0.7 L (0.9-1.6) 11/23/20 11/23/20 11/23/20 Range/Units 05:34 05:34 05:34 WBC 22.75 H (4.0-11.0) K/uL RBC 2.39 L (4.30-5.90) M/uL Hgb 7.1 L (12.0-16.0) g/dL Hct 21.4 L (36.0-46.0) % MCV 89.5 (80.0-98.0) fL MCH 29.7 (27.0-32.0) pg MCHC 33.2 (31.0-37.0) g/dL RDW Std Deviation 41.3 (28.0-62.0) fl RDW Coeff of Pat 14 (11.0-15.0) % Plt Count 205 (150-400) K/uL MPV 8.80 (7.40-12.00) fL Add Manual Diff YES Neutrophils % (Manual) 70 (48.0-80.0) % Band Neutrophils % 22 % Lymphocytes % (Manual) 6 L (16.0-40.0) % Monocytes % (Manual) 2 (0.0-15.0) % Eosinophils % (Manual) (0.0-7.0) % Nucleated RBC % /100WBC Absolute Seg Neuts 15.9 H (1.4-5.7) Band Neutrophils # 5.0 Lymphocytes # (Manual) 1.4 (0.6-2.4) Monocytes # (Manual) 0.5 (0.0-0.8) Eosinophils # (Manual) (0.0-0.7) Sodium 142 (136-145) mmol/L Potassium 3.8 (3.5-5.1) mmol/L Chloride 108 H (98-107) mmol/L Carbon Dioxide 26.8 (21.0-32.0) mmol/L BUN 12 (7.0-18.0) mg/dL Creatinine 0.9 (0.6-1.0) mg/dL Est Cr Clr Drug Dosing 74.92 mL/min Estimated GFR (MDRD) > 60.0 ml/min Glucose 83 (74-106) mg/dL Lactic Acid 1.0 (0.4-2.0) mmol/L Calcium 7.3 L (8.5-10.1) mg/dL Total Bilirubin 0.2 (0.2-1.0) mg/dL AST 25 (15-37) IU/L ALT 13 L (14-63) IU/L Alkaline Phosphatase 72 (46-116) U/L Total Protein 4.4 L (6.4-8.2) g/dL Albumin 1.7 L (3.4-5.0) g/dL Globulin 2.7 (2.6-4.0) g/dL Albumin/Globulin Ratio 0.6 L (0.9-1.6) Micro Results - Last 24 Hours: Microbiology 09/28/21 16:35 Aerobic Blood Culture - Preliminary Blood - Venous - Lab Draw NO GROWTH AFTER 1 DAY Anaerobic Blood Culture - Preliminary NO GROWTH AFTER 1 DAY 11/21/20 16:31 Aerobic Blood Culture - Preliminary Blood - Venous NO GROWTH AFTER 1 DAY Anaerobic Blood Culture - Preliminary NO GROWTH AFTER 1 DAY Med Orders - Current: Current Medications Bisacodyl (Bisacodyl 10 Mg Supp) 10 mg RECTAL ONETIME PRN PRN Reason: Constipation Diphenhydramine HCl (Diphenhydramine 50 Mg/Ml Sdv) 25 mg IVPUSH Q6H PRN PRN Reason: Itching or Nausea Docusate Sodium (Docusate Sodium 100 Mg Cap) 100 mg PO BID [facility] Last Admin: 11/22/20 21:19 Dose: 100 mg Documented by: Emollient Ointment (Lanolin 100% Cream 7 Gm Tube) 0 gm TOP ASDIRECTED PRN PRN Reason: Sore Nipples Last Admin: 11/23/20 00:17 Dose: 7 gram Documented by: Lactated Ringer's (Ringers, Lactated) 1,000 mls @ 125 mls/hr IV ASDIRECTED [facility] Last Admin: 11/22/20 09:30 Dose: 125 mls/hr Documented by: Tranexamic Acid 1,000 mg/ (Sodium Chloride) 110 mls @ 660 mls/hr IV ONETIME PRN PRN Reason: Bleeding Lactated Ringer's (Ringers, Lactated) 500 mls @ 999 mls/hr IV ASDIRECTED [facility] Last Admin: 11/22/20 09:00 Dose: 999 mls/hr Documented by: Piperacillin Sod/Tazobactam (Sod 4.5 gm/ Sodium Chloride) 100 mls @ 100 mls/hr IV Q6H [facility] Last Admin: 11/23/20 06:18 Dose: 100 mls/hr Documented by: Lactated Ringer's (Ringers, Lactated) 1,000 mls @ 999 mls/hr IV ASDIRECTED [facility] Last Admin: 11/22/20 15:20 Dose: 999 mls/hr Documented by: Ibuprofen (Ibuprofen 800 Mg Tab) 800 mg PO Q8H PRN PRN Reason: Cramping Last Admin: 11/23/20 00:16 Dose: 800 mg Documented by: Methylergonovine Maleate (Methylergonovine 0.2 Mg/1 Ml Amp) 0.2 mg IM ONETIME PRN PRN Reason: Excessive Vaginal Bleeding Misoprostol (Misoprostol 200 Mcg Tab) 1,000 mcg RECTAL ONETIME PRN PRN Reason: excessive bleeding Ondansetron HCl (Ondansetron 4 Mg/2 Ml Sdv) 4 mg IVPUSH Q4H PRN PRN Reason: Nausea/Vomiting Last Admin: 11/22/20 04:54 Dose: 4 mg Documented by: Oxycodone/Acetaminophen (Acetaminophen/Oxycodone 325-5 Mg Tab) 1 tab PO Q4H PRN PRN Reason: Pain (severe 7-10) Last Admin: 11/23/20 02:40 Dose: 1 tab Documented by: Oxycodone/Acetaminophen (Acetaminophen/Oxycodone 325-5 Mg Tab) 2 tab PO Q4H PRN PRN Reason: Pain (severe 7-10) Oxytocin (Oxytocin 10 Units/1 Ml Sdv) 10 unit IM ASDIRECTED PRN PRN Reason: Excessive Vaginal Bleeding Sodium Chloride (Sodium Chloride 0.9% 10 Ml Syringe) 10 ml FLUSH ASDIRECTED PRN PRN Reason: Keep Vein Open Sodium Chloride (Sodium Chloride 0.9% 2.5 Ml Syringe) 2.5 ml FLUSH ASDIRECTED PRN PRN Reason: Keep Vein Open Sodium Chloride (Sodium Chloride 0.9% 10 Ml Sdv) 10 ml IV ASDIRECTED PRN PRN Reason: IV Use Discontinued Medications Butorphanol Tartrate (Butorphanol 1 Mg/Ml Sdv) 1 mg IVPUSH Q1H PRN PRN Reason: Pain (severe 7-10) Carboprost Tromethamine (Carboprost Tromethamine 250 Mcg/1 Ml Amp) 250 mcg IM ASDIRECTED PRN PRN Reason: Post Hemorrhage Fentanyl (Fentanyl 100 Mcg/2 Ml Sdv) Confirm Administered Dose 100 mcg .ROUTE .STK-MED ONE Stop: 11/21/20 16:42 Lactated Ringer's (Ringers, Lactated) 1,000 mls @ 150 mls/hr IV ASDIRECTED [facility] Last Admin: 11/21/20 16:41 Dose: 999 mls/hr Documented by: Oxytocin/Sodium Chloride (Oxytocin 30 Unit In Ns 0.9% 500 Ml Premix) 30 unit in 500 mls @ 500 mls/hr IV TITRATE [facility] Tranexamic Acid 1,000 mg/ (Sodium Chloride) 110 mls @ 660 mls/hr IV ONETIME PRN PRN Reason: Bleeding Ampicillin Sodium 2 gm/ Sodium (Chloride) 100 mls @ 200 mls/hr IV Q6H [facility] Last Admin: 11/22/20 10:39 Dose: 200 mls/hr Documented by: Gentamicin Sulfate 290 mg/ (Sodium Chloride) 107.25 mls @ 200 mls/hr IV Q24H [facility] Last Admin: 11/22/20 19:44 Dose: Not Given Documented by: Clindamycin Phosphate 900 mg/ (Premix) 50 mls @ 100 mls/hr IV Q8H [facility] Last Admin: 11/22/20 09:30 Dose: 100 mls/hr Documented by: Ibuprofen (Ibuprofen 800 Mg Tab) Confirm Administered Dose 800 mg .ROUTE .STK- MED ONE Stop: 11/23/20 00:15 Last Admin: 11/23/20 02:41 Dose: Not Given Documented by: Ketorolac Tromethamine (Ketorolac 30 Mg/Ml Sdv) 30 mg IVPUSH Q6H [facility] Stop: 11/22/20 17:31 Last Admin: 11/22/20 17:23 Dose: 30 mg Documented by: Lidocaine HCl (Lidocaine 1% 50 Ml Mdv) 50 ml INJECT ONETIME PRN PRN Reason: Laceration repair Lidocaine HCl (Lidocaine 1% 5 Ml Sdv) Confirm Administered Dose 10 ml .ROUTE .STK-MED ONE Stop: 11/21/20 17:55 Methylergonovine Maleate (Methylergonovine 0.2 Mg/1 Ml Amp) 0.2 mg IM ASDIRECTED PRN PRN Reason: Post Hemorrhage Miscellaneous Medication (Phenylephrine Hcl In 0.9% Nacl 1 Mg/10 Ml Syringe) Confirm Administered Dose 2 mg .ROUTE .STK-MED ONE Stop: 11/21/20 17:17 Miscellaneous Medication (Phenylephrine Hcl In 0.9% Nacl 1 Mg/10 Ml Syringe) Confirm Administered Dose 1 mg .ROUTE .STK-MED ONE Stop: 11/21/20 17:38 Miscellaneous Medication (Phenylephrine Hcl In 0.9% Nacl 1 Mg/10 Ml Syringe) Confirm Administered Dose 1 mg .ROUTE .STK-MED ONE Stop: 11/21/20 17:58 Morphine Sulfate (Morphine Pf 10 Mg/10 Ml Sdv) Confirm Administered Dose 10 mg .ROUTE .STK-MED ONE Stop: 11/21/20 16:42 Nalbuphine HCl (Nalbuphine 10 Mg/1 Ml Vial) 10 mg IVPUSH Q1H PRN PRN Reason: Pain (severe 7-10) Octyl Cyanoacrylate (Octyl 2-Cyanoacrylate 1 Tube) Confirm Administered Dose 1 applic .ROUTE .STK-MED ONE Stop: 11/21/20 16:52 Ondansetron HCl (Ondansetron 4 Mg/2 Ml Sdv) 4 mg IVPUSH Q4H PRN PRN Reason: Nausea/Vomiting Ondansetron HCl (Ondansetron 4 Mg/2 Ml Sdv) Confirm Administered Dose 4 mg .ROUTE .STK-MED ONE Stop: 11/21/20 17:38 Oxytocin (Oxytocin 10 Units/1 Ml Sdv) Confirm Administered Dose 30 unit .ROUTE .STK-MED ONE Stop: 11/21/20 17:38 Ropivacaine (Ropivacaine 0.5% 5 Mg/Ml 30 Ml Sdv) Confirm Administered Dose 30 ml .ROUTE .STK-MED ONE Stop: 11/21/20 17:55 Sterile Water (Water For Irrigation,Sterile 1,000 Ml Container) 1,000 ml IRR ASDIRECTED PRN PRN Reason: delivery - Infant Interaction Infant Disposition, : [place] in Room with Family Infant Feeding: Breastfed Infant; Nursed Well Support Person: - Recovery Exam Fundal Tone: Firm Fundal Level: 1 Fingerbreadths Below Umbilicus Fundal Placement: Midline Lochia Amount: Scant Lochia Color: Rubra/Red Perineum Description: Intact, Minimal Bruising/Swelling Episiotomy/Laceration: None Bladder Status: Voiding Urinary Elimination: Voided - Exam General: Alert, Oriented, Cooperative, No Acute Distress HEENT: Pupils Equal, Pupils Reactive, EOMI Neck: Supple, Trachea Midline, No JVD Lungs: Normal Respiratory Effort GI/Abdominal Exam: Soft, Non-Tender, No Distention Extremities: Normal Inspection, Normal Range of Motion, Non-Tender, No Pedal Edema Skin: Warm, Dry, Intact Wound/Incisions: Healing Well Neurological: No New Focal Deficit Psy/Mental Status: Alert, Normal Affect, Normal Mood - Problem List Review Problem List Initiated/Reviewed/Updated: Yes - My Orders Last 24 Hours: My Active Orders 11/22/20 09:00 Lactated Ringers [Ringers, Lactated] 500 ml IV ASDIRECTED 11/22/20 12:00 Piperacillin/Tazobactam [Piperacil-Tazobact] 4.5 gm Sodium Chloride 0.9% [Normal Saline] 100 ml IV Q6H 11/22/20 13:00 Lactated Ringers [Ringers, Lactated] 1,000 ml IV ASDIRECTED 11/23/20 23:00 Ibuprofen [Motrin] 800 mg PO Q8H PRN 11/24/20 05:00 COMPREHENSIVE METABOLIC PN,CMP [CHEM] DAILY 11/25/20 05:00 COMPREHENSIVE METABOLIC PN,CMP [CHEM] DAILY - Assessment Assessment:: 24yo POD2 s/p primary LTCS due to early labor, breech presentation and suspected chorioamnionitis vs pyleonephritis. - Plan Plan:: - no fevers for 24hours, leukocytosis improving with WBC of 21 - blood cultures negative - urine output has improved, zavala removed last night, urine cultures pending - lactate wnl - Hgb 7.1 this AM, bleeding light, will monitor with serial CBCs - continue zosyn, stop gentamycin - ambulating and tolerating PO, passing flatus - pain controlled - baby doing well, Will continue to monitor closely inpatient.
[2020-11-23] MEDS: Docusate Sodium 100 MG Cap PO SCH ×2 (09:47→21:13)
[2020-11-23] MEDS: Ibuprofen 800 MG Tab PO PRN ×2 (13:46→21:50)
--- NOTE | 2020-11-23 14:36 | PCM48HPAN ---
Post Anesthesia Note - EVALUATION WITHIN 48HRS OF ANESTHETIC Vital Signs in Normal Range: Yes Patient Participated in Evaluation: Yes Respiratory Function Stable: Yes Airway Patent: Yes Cardiovascular Function Stable: Yes Hydration Status Stable: Yes Pain Control Satisfactory: Yes Nausea and Vomiting Control Satisfactory: Yes Mental Status Recovered: Yes Vital Signs: Last Vital Signs Temp 97.8 F 11/23/20 07:57 Pulse 70 11/23/20 07:57 Resp 18 11/23/20 07:57 BP 91/52 L 11/23/20 07:57 Pulse Ox 97 11/23/20 07:57
[2020-11-23] MEDS ORDERED: Ibuprofen 800 MG Tab PO PRN (23:00)
[2020-11-24] MEDS: Acetaminophen/oxyCODONE 325-5 MG Tab PO PRN ×3 (00:33→14:45)
[2020-11-24] MEDS: Piperacillin/Tazobactam 4.5 GM in Sodium Chloride 0.9% 100 ML IV SCH ×2 (00:35→06:26)
[2020-11-24] MEDS: Lactated Ringers 1,000 ML IV SCH (00:36)
[2020-11-24] MEDS: Ibuprofen 800 MG Tab PO PRN (06:25)
[2020-11-24 07:27] LABS: BLOOD UREA NITROGEN,BUN 9 mg/dL (7.0-18.0); CARBON DIOXIDE,CO2 27.3 mmol/L (21.0-32.0); CHLORIDE,CL 107 mmol/L (98-107); GLUCOSE RANDOM 70 mg/dL (74-106); POTASSIUM,K 4.1 mmol/L (3.5-5.1); SODIUM,NA 143 mmol/L (136-145)
[2020-11-24] MEDS: Docusate Sodium 100 MG Cap PO SCH (08:43)
--- NOTE | 2020-11-24 09:11 | PCM.PNPP ---
- General Info Date of Service: 11/24/20 Functional Status: Reports: Pain Controlled, Tolerating Diet, Ambulating, Urinating, Other (Had episode of watery stools last night) - Review of Systems General: Reports: No Symptoms HEENT: Reports: No Symptoms Pulmonary: Reports: No Symptoms Cardiovascular: Reports: No Symptoms Gastrointestinal: Reports: No Symptoms Genitourinary: Reports: No Symptoms Musculoskeletal: Reports: No Symptoms Skin: Reports: No Symptoms Neurological: Reports: No Symptoms Psychiatric: Reports: No Symptoms - Patient Data Vital Signs - Most Recent: Last Vital Signs Temp 36.7 C 11/24/20 03:58 Pulse 82 11/24/20 03:58 Resp 18 11/24/20 03:58 BP 94/69 11/24/20 03:58 Pulse Ox 97 11/24/20 03:58 Weight - Most Recent: 155 lb Lab Results - Last 24 Hours: Laboratory Results - last 24 hr 11/24/20 11/24/20 Range/Units 06:17 06:17 WBC 12.24 H (4.0-11.0) K/uL RBC 2.46 L (4.30-5.90) M/uL Hgb 7.2 L (12.0-16.0) g/dL Hct 21.4 L (36.0-46.0) % MCV 87.0 (80.0-98.0) fL MCH 29.3 (27.0-32.0) pg MCHC 33.6 (31.0-37.0) g/dL RDW Std Deviation 45.8 (28.0-62.0) fl RDW Coeff of Pat 14 (11.0-15.0) % Plt Count 229 (150-400) K/uL MPV 8.40 (7.40-12.00) fL Nucleated RBC % 0.0 /100WBC Nucleated RBCs # 0 K/uL Sodium 143 (136-145) mmol/L Potassium 4.1 (3.5-5.1) mmol/L Chloride 107 (98-107) mmol/L Carbon Dioxide 27.3 (21.0-32.0) mmol/L BUN 9 (7.0-18.0) mg/dL Creatinine 0.8 (0.6-1.0) mg/dL Est Cr Clr Drug Dosing 84.28 mL/min Estimated GFR (MDRD) > 60.0 ml/min Glucose 70 L (74-106) mg/dL Calcium 7.7 L (8.5-10.1) mg/dL Total Bilirubin 0.2 (0.2-1.0) mg/dL AST 23 (15-37) IU/L ALT 15 (14-63) IU/L Alkaline Phosphatase 74 (46-116) U/L Total Protein 4.6 L (6.4-8.2) g/dL Albumin 1.7 L (3.4-5.0) g/dL Globulin 2.9 (2.6-4.0) g/dL Albumin/Globulin Ratio 0.6 L (0.9-1.6) Micro Results - Last 24 Hours: Microbiology 11/21/20 16:35 Aerobic Blood Culture - Preliminary Blood - Venous - Lab Draw NO GROWTH AFTER 2 DAYS Anaerobic Blood Culture - Preliminary NO GROWTH AFTER 2 DAYS 11/21/20 16:31 Aerobic Blood Culture - Preliminary Blood - Venous NO GROWTH AFTER 2 DAYS Anaerobic Blood Culture - Preliminary NO GROWTH AFTER 2 DAYS Med Orders - Current: Current Medications Bisacodyl (Bisacodyl 10 Mg Supp) 10 mg RECTAL ONETIME PRN PRN Reason: Constipation Diphenhydramine HCl (Diphenhydramine 50 Mg/Ml Sdv) 25 mg IVPUSH Q6H PRN PRN Reason: Itching or Nausea Docusate Sodium (Docusate Sodium 100 Mg Cap) 100 mg PO BID [facility] Last Admin: 11/24/20 08:43 Dose: Not Given Documented by: Emollient Ointment (Lanolin 100% Cream 7 Gm Tube) 0 gm TOP ASDIRECTED PRN PRN Reason: Sore Nipples Last Admin: 11/23/20 00:17 Dose: 7 gram Documented by: Lactated Ringer's (Ringers, Lactated) 1,000 mls @ 125 mls/hr IV ASDIRECTED [facility] Last Infusion: 11/22/20 17:30 Dose: Infused Documented by: Tranexamic Acid 1,000 mg/ (Sodium Chloride) 110 mls @ 660 mls/hr IV ONETIME PRN PRN Reason: Bleeding Lactated Ringer's (Ringers, Lactated) 500 mls @ 999 mls/hr IV ASDIRECTED [facility] Last Admin: 11/22/20 09:00 Dose: 999 mls/hr Documented by: Lactated Ringer's (Ringers, Lactated) 1,000 mls @ 999 mls/hr IV ASDIRECTED [facility] Last Admin: 11/22/20 15:20 Dose: 999 mls/hr Documented by: Ibuprofen (Ibuprofen 800 Mg Tab) 800 mg PO Q8H PRN PRN Reason: Cramping Last Admin: 11/24/20 06:25 Dose: 800 mg Documented by: Methylergonovine Maleate (Methylergonovine 0.2 Mg/1 Ml Amp) 0.2 mg IM ONETIME PRN PRN Reason: Excessive Vaginal Bleeding Misoprostol (Misoprostol 200 Mcg Tab) 1,000 mcg RECTAL ONETIME PRN PRN Reason: excessive bleeding Ondansetron HCl (Ondansetron 4 Mg/2 Ml Sdv) 4 mg IVPUSH Q4H PRN PRN Reason: Nausea/Vomiting Last Admin: 11/22/20 04:54 Dose: 4 mg Documented by: Oxycodone/Acetaminophen (Acetaminophen/Oxycodone 325-5 Mg Tab) 1 tab PO Q4H PRN PRN Reason: Pain (severe 7-10) Last Admin: 11/24/20 08:59 Dose: 1 tab Documented by: Oxycodone/Acetaminophen (Acetaminophen/Oxycodone 325-5 Mg Tab) 2 tab PO Q4H PRN PRN Reason: Pain (severe 7-10) Oxytocin (Oxytocin 10 Units/1 Ml Sdv) 10 unit IM ASDIRECTED PRN PRN Reason: Excessive Vaginal Bleeding Sodium Chloride (Sodium Chloride 0.9% 10 Ml Syringe) 10 ml FLUSH ASDIRECTED PRN PRN Reason: Keep Vein Open Sodium Chloride (Sodium Chloride 0.9% 2.5 Ml Syringe) 2.5 ml FLUSH ASDIRECTED PRN PRN Reason: Keep Vein Open Sodium Chloride (Sodium Chloride 0.9% 10 Ml Sdv) 10 ml IV ASDIRECTED PRN PRN Reason: IV Use Discontinued Medications Butorphanol Tartrate (Butorphanol 1 Mg/Ml Sdv) 1 mg IVPUSH Q1H PRN PRN Reason: Pain (severe 7-10) Carboprost Tromethamine (Carboprost Tromethamine 250 Mcg/1 Ml Amp) 250 mcg IM ASDIRECTED PRN PRN Reason: Post Hemorrhage Fentanyl (Fentanyl 100 Mcg/2 Ml Sdv) Confirm Administered Dose 100 mcg .ROUTE .STK-MED ONE Stop: 11/21/20 16:42 Lactated Ringer's (Ringers, Lactated) 1,000 mls @ 150 mls/hr IV ASDIRECTED [facility] Last Admin: 11/21/20 16:41 Dose: 999 mls/hr Documented by: Oxytocin/Sodium Chloride (Oxytocin 30 Unit In Ns 0.9% 500 Ml Premix) 30 unit in 500 mls @ 500 mls/hr IV TITRATE [facility] Tranexamic Acid 1,000 mg/ (Sodium Chloride) 110 mls @ 660 mls/hr IV ONETIME PRN PRN Reason: Bleeding Ampicillin Sodium 2 gm/ Sodium (Chloride) 100 mls @ 200 mls/hr IV Q6H [facility] Last Admin: 11/22/20 10:39 Dose: 200 mls/hr Documented by: Gentamicin Sulfate 290 mg/ (Sodium Chloride) 107.25 mls @ 200 mls/hr IV Q24H [facility] Last Admin: 11/22/20 19:44 Dose: Not Given Documented by: Clindamycin Phosphate 900 mg/ (Premix) 50 mls @ 100 mls/hr IV Q8H [facility] Last Admin: 11/22/20 09:30 Dose: 100 mls/hr Documented by: Piperacillin Sod/Tazobactam (Sod 4.5 gm/ Sodium Chloride) 100 mls @ 100 mls/hr IV Q6H [facility] Last Admin: 11/24/20 06:26 Dose: 100 mls/hr Documented by: Ibuprofen (Ibuprofen 800 Mg Tab) 800 mg PO Q8H PRN PRN Reason: Cramping Last Admin: 11/23/20 00:16 Dose: 800 mg Documented by: Ibuprofen (Ibuprofen 800 Mg Tab) Confirm Administered Dose 800 mg .ROUTE .STK- MED ONE Stop: 11/23/20 00:15 Last Admin: 11/23/20 02:41 Dose: Not Given Documented by: Ketorolac Tromethamine (Ketorolac 30 Mg/Ml Sdv) 30 mg IVPUSH Q6H [facility] Stop: 11/22/20 17:31 Last Admin: 11/22/20 17:23 Dose: 30 mg Documented by: Lidocaine HCl (Lidocaine 1% 50 Ml Mdv) 50 ml INJECT ONETIME PRN PRN Reason: Laceration repair Lidocaine HCl (Lidocaine 1% 5 Ml Sdv) Confirm Administered Dose 10 ml .ROUTE .[place]-MED ONE Stop: 11/21/20 17:55 Methylergonovine Maleate (Methylergonovine 0.2 Mg/1 Ml Amp) 0.2 mg IM ASDIRECTED PRN PRN Reason: Post Hemorrhage Miscellaneous Medication (Phenylephrine Hcl In 0.9% Nacl 1 Mg/10 Ml Syringe) Confirm Administered Dose 2 mg .ROUTE .[place]-MED ONE Stop: 11/21/20 17:17 Miscellaneous Medication (Phenylephrine Hcl In 0.9% Nacl 1 Mg/10 Ml Syringe) Confirm Administered Dose 1 mg .ROUTE .[place]-MED ONE Stop: 11/21/20 17:38 Miscellaneous Medication (Phenylephrine Hcl In 0.9% Nacl 1 Mg/10 Ml Syringe) Confirm Administered Dose 1 mg .ROUTE .[place]-MED ONE Stop: 11/21/20 17:58 Morphine Sulfate (Morphine Pf 10 Mg/10 Ml Sdv) Confirm Administered Dose 10 mg .ROUTE .[place]-MED ONE Stop: 11/21/20 16:42 Nalbuphine HCl (Nalbuphine 10 Mg/1 Ml Vial) 10 mg IVPUSH Q1H PRN PRN Reason: Pain (severe 7-10) Octyl Cyanoacrylate (Octyl 2-Cyanoacrylate 1 Tube) Confirm Administered Dose 1 applic .ROUTE .[place]-MED ONE Stop: 11/21/20 16:52 Ondansetron HCl (Ondansetron 4 Mg/2 Ml Sdv) 4 mg IVPUSH Q4H PRN PRN Reason: Nausea/Vomiting Ondansetron HCl (Ondansetron 4 Mg/2 Ml Sdv) Confirm Administered Dose 4 mg .ROUTE .[place]-MED ONE Stop: 11/21/20 17:38 Oxytocin (Oxytocin 10 Units/1 Ml Sdv) Confirm Administered Dose 30 unit .ROUTE .[place]-MED ONE Stop: 11/21/20 17:38 Ropivacaine (Ropivacaine 0.5% 5 Mg/Ml 30 Ml Sdv) Confirm Administered Dose 30 ml .ROUTE .[place]-MED ONE Stop: 11/21/20 17:55 Sterile Water (Water For Irrigation,Sterile 1,000 Ml Container) 1,000 ml IRR ASDIRECTED PRN PRN Reason: delivery - Interaction Infant Disposition, : in Room with Family Infant Feeding: Breastfed Infant; Nursed Well Support Person: - Recovery Exam Fundal Tone: Firm Fundal Level: 2 Fingerbreadths Below Umbilicus Fundal Placement: Midline Lochia Amount: Scant Lochia Color: Rubra/Red Perineum Description: Intact, Minimal Bruising/Swelling Episiotomy/Laceration: None Bladder Status: Voiding Urinary Elimination: Voided - Exam General: Alert, Oriented, Cooperative, No Acute Distress HEENT: Pupils Equal, Pupils Reactive, EOMI Neck: Supple, Trachea Midline, No JVD Lungs: Normal Respiratory Effort GI/Abdominal Exam: Soft, Non-Tender, No Distention Extremities: Normal Inspection, Normal Range of Motion, Non-Tender, No Pedal Edema Skin: Warm, Dry, Intact Wound/Incisions: Healing Well Neurological: No New Focal Deficit Psy/Mental Status: Alert, Normal Affect, Normal Mood - Problem List Review Problem List Initiated/Reviewed/Updated: Yes - My Orders Last 24 Hours: My Active Orders 11/23/20 13:37 Ibuprofen [Motrin] 800 mg PO Q8H PRN 11/25/20 05:00 COMPREHENSIVE METABOLIC PN,CMP [CHEM] DAILY - Assessment Assessment:: 24yo POD3 s/p primary LTCS due to early labor, breech presentation and suspected chorioamnionitis vs pyleonephritis. - Plan Plan:: - no fevers for more than 48hours, leukocytosis improving with WBC of 12 - blood cultures negative - urine cultures pending - Hgb 7.2 this AM, bleeding light, start iron supplements - stop zosyn this AM, will start bactrim PO - ambulating and tolerating PO, passing flatus - had episode of watery stools last night, if continue to have it today will send c.diff test - pain controlled - baby doing well, Plan for discharge home later today if continues to be stable, reviewed care instructions.
--- NOTE | 2020-11-24 09:18 | PCM.DCSUM1 ---
Discharge Summary - Hospital Course HPI Initial Comments: From admission HPI: 24yo at 38w5d ZOILA 11/30/20 by 12w6d US presenting with chills and contractions. Patient reports this morning starting noticing chills, this started suddenly, was feeling well yesterday. She also starting noticing stronger and more consistent contractions q1-2min. Denies leakage of fluid. Has some dysuria. was complicated by breech presentation, unsuccessful ECV at 37weeks. EFW 83% on US. She is GBS positive. - Discharge Data Discharge Date: 11/24/20 Discharge Disposition: Home, Self-Care Condition: Good - Referral to Home Health Primary Care Physician: Collin Mcintyre MD - Patient Summary/Data Operative Procedure(s) Performed: Primary low transverse section Hospital Course: Patient had primary LTCS due to early labor, breech presentation and suspected chorioamnionitis. She was started on ampicillin, gentamycin and clindamycin for treatment for chorioamnionitis. Surgery was uncomplicated, EBL of 900cc. Patient did not have further fevers, but urine output was low on POD1 and WBC increased to 28. She did respond to IV fluid hydration. Antibiotic was changed to gentamycin and zosyn for presumed pyelonephritis. She began to improved on afternoon of POD1 with improving UO, zavala was removed. On POD2, Hgb decreased to 7.1, she was not symptomatic and bleeding was light. She was ambulating and tolerating PO, passing flatus. On POD3, Hgb was stable at 7.2, WBC decreased to 12. She did not have further fevers for 48 hours. Zosyn was stopped and started on bactrim x7d, will follow up urine culture results. Blood cultures have been negative. Stable for discharge home. - Patient Instructions Diet: Usual Diet as Tolerated Activity: No Lifting Over 10 Pounds, No Strenuous Activities Driving: Do Not Drive Showering/Bathing: May Shower Notify Provider of: Fever, Increased Pain, Swelling and Redness, Nausea and/or Vomiting Other/Special Instructions: Call with fever >101, increased abdominal pain, redness or drainage from incision, heavy vaginal bleeding soaking a large pad an hour for 3 hours. Nothing in the vagina for 6 weeks - Discharge Plan *PRESCRIPTION DRUG MONITORING PROGRAM REVIEWED*: Yes *COPY OF PRESCRIPTION DRUG MONITORING REPORT IN PATIENT ANA: No Prescriptions/Med Rec: Sulfamethoxazole/Trimethoprim [Bactrim Ds Tablet] 1 each PO BID 7 Days #14 tablet Ferrous Sulfate 325 mg PO BIDMEALS #120 tab Ibuprofen [Motrin] 800 mg PO Q8H PRN #30 tablet PRN Reason: Pain (Moderate 4-6) Acetaminophen/oxyCODONE [Percocet 325-5 MG] 1 tab PO Q4H PRN #20 tablet PRN Reason: Pain (Severe 7-10) Home Medications: Home Meds Azelaic Acid [Finacea] 11/09/20 [History] Azelaic Acid [Finacea] 11/09/20 [History] Acetaminophen/oxyCODONE [Percocet 325-5 MG] 1 tab PO Q4H PRN #20 tablet 11/24/20 [Rx] Docusate Sodium [Colace] 100 mg PO BID cap 11/24/20 [Rx] Ferrous Sulfate 325 mg PO BIDMEALS #120 tab 11/24/20 [Rx] Ibuprofen [Motrin] 800 mg PO Q8H PRN #30 tablet 11/24/20 [Rx] Sulfamethoxazole/Trimethoprim [Bactrim Ds Tablet] 1 each PO BID 7 Days #14 tablet 11/24/20 [Rx] Patient Handouts: Baby Blues, Care After Delivery Referrals: Collin Mcintyre MD [Primary Care Provider] - 12/06/20 1:00 pm (You may bring your with to your appointment. Masks are required. Bring ID and insurance cards. Six week follow-up with Dr. Mcintyre on 01/03, at 11:15.) - Discharge Summary/Plan Comment DC Time >30 min.: No Total # of Minutes for Discharge Time: 20 - Patient Data Vitals - Most Recent: Last Vital Signs Temp 36.6 C 11/24/20 08:00 Pulse 73 11/24/20 08:00 Resp 18 11/24/20 08:00 BP 113/80 11/24/20 08:00 Pulse Ox 98 11/24/20 08:00 Weight - Most Recent: 155 lb Lab Results - Last 24 hrs: Laboratory Results - last 24 hr 11/24/20 11/24/20 Range/Units 06:17 06:17 WBC 12.24 H (4.0-11.0) K/uL RBC 2.46 L (4.30-5.90) M/uL Hgb 7.2 L (12.0-16.0) g/dL Hct 21.4 L (36.0-46.0) % MCV 87.0 (80.0-98.0) fL MCH 29.3 (27.0-32.0) pg MCHC 33.6 (31.0-37.0) g/dL RDW Std Deviation 45.8 (28.0-62.0) fl RDW Coeff of Pat 14 (11.0-15.0) % Plt Count 229 (150-400) K/uL MPV 8.40 (7.40-12.00) fL Nucleated RBC % 0.0 /100WBC Nucleated RBCs # 0 K/uL Sodium 143 (136-145) mmol/L Potassium 4.1 (3.5-5.1) mmol/L Chloride 107 (98-107) mmol/L Carbon Dioxide 27.3 (21.0-32.0) mmol/L BUN 9 (7.0-18.0) mg/dL Creatinine 0.8 (0.6-1.0) mg/dL Est Cr Clr Drug Dosing 84.28 mL/min Estimated GFR (MDRD) > 60.0 ml/min Glucose 70 L (74-106) mg/dL Calcium 7.7 L (8.5-10.1) mg/dL Total Bilirubin 0.2 (0.2-1.0) mg/dL AST 23 (15-37) IU/L ALT 15 (14-63) IU/L Alkaline Phosphatase 74 (46-116) U/L Total Protein 4.6 L (6.4-8.2) g/dL Albumin 1.7 L (3.4-5.0) g/dL Globulin 2.9 (2.6-4.0) g/dL Albumin/Globulin Ratio 0.6 L (0.9-1.6) MARIANNE Results - Last 24 hrs: Microbiology 11/21/20 16:35 Aerobic Blood Culture - Preliminary Blood - Venous - Lab Draw NO GROWTH AFTER 2 DAYS Anaerobic Blood Culture - Preliminary NO GROWTH AFTER 2 DAYS 11/21/20 16:31 Aerobic Blood Culture - Preliminary Blood - Venous NO GROWTH AFTER 2 DAYS Anaerobic Blood Culture - Preliminary NO GROWTH AFTER 2 DAYS Med Orders - Current: Current Medications Bisacodyl (Bisacodyl 10 Mg Supp) 10 mg RECTAL ONETIME PRN PRN Reason: Constipation Diphenhydramine HCl (Diphenhydramine 50 Mg/Ml Sdv) 25 mg IVPUSH Q6H PRN PRN Reason: Itching or Nausea Docusate Sodium (Docusate Sodium 100 Mg Cap) 100 mg PO BID [facility] Last Admin: 11/24/20 08:43 Dose: Not Given Documented by: Emollient Ointment (Lanolin 100% Cream 7 Gm Tube) 0 gm TOP ASDIRECTED PRN PRN Reason: Sore Nipples Last Admin: 11/23/20 00:17 Dose: 7 gram Documented by: Lactated Ringer's (Ringers, Lactated) 1,000 mls @ 125 mls[facility] Infusion: 11/22/20 17:30 Dose: Infused Documented by: Tranexamic Acid 1,000 mg/ (Sodium Chloride) 110 mls @ 660 mls/hr IV ONETIME PRN PRN Reason: Bleeding Lactated Ringer's (Ringers, Lactated) 500 mls @ 999 mls/hr IV ASDIRECTED [facility] Last Admin: 11/22/20 09:00 Dose: 999 mls/hr Documented by: Lactated Ringer's (Ringers, Lactated) 1,000 mls @ 999 [facility] Last Admin: 11/22/20 15:20 Dose: 999 mls/hr Documented by: Ibuprofen (Ibuprofen 800 Mg Tab) 800 mg PO Q8H PRN PRN Reason: Cramping Last Admin: 11/24/20 06:25 Dose: 800 mg Documented by: Methylergonovine Maleate (Methylergonovine 0.2 Mg/1 Ml Amp) 0.2 mg IM ONETIME PRN PRN Reason: Excessive Vaginal Bleeding Misoprostol (Misoprostol 200 Mcg Tab) 1,000 mcg RECTAL ONETIME PRN PRN Reason: excessive bleeding Ondansetron HCl (Ondansetron 4 Mg/2 Ml Sdv) 4 mg IVPUSH Q4H PRN PRN Reason: Nausea/Vomiting Last Admin: 11/22/20 04:54 Dose: 4 mg Documented by: Oxycodone/Acetaminophen (Acetaminophen/Oxycodone 325-5 Mg Tab) 1 tab PO Q4H PRN PRN Reason: Pain (severe 7-10) Last Admin: 11/24/20 08:59 Dose: 1 tab Documented by: Oxycodone/Acetaminophen (Acetaminophen/Oxycodone 325-5 Mg Tab) 2 tab PO Q4H PRN PRN Reason: Pain (severe 7-10) Oxytocin (Oxytocin 10 Units/1 Ml Sdv) 10 unit IM ASDIRECTED PRN PRN Reason: Excessive Vaginal Bleeding Sodium Chloride (Sodium Chloride 0.9% 10 Ml Syringe) 10 ml FLUSH ASDIRECTED PRN PRN Reason: Keep Vein Open Sodium Chloride (Sodium Chloride 0.9% 2.5 Ml Syringe) 2.5 ml FLUSH ASDIRECTED PRN PRN Reason: Keep Vein Open Sodium Chloride (Sodium Chloride 0.9% 10 Ml Sdv) 10 ml IV ASDIRECTED PRN PRN Reason: IV Use Discontinued Medications Butorphanol Tartrate (Butorphanol 1 Mg/Ml Sdv) 1 mg IVPUSH Q1H PRN PRN Reason: Pain (severe 7-10) Carboprost Tromethamine (Carboprost Tromethamine 250 Mcg/1 Ml Amp) 250 mcg IM ASDIRECTED PRN PRN Reason: Post Hemorrhage Fentanyl (Fentanyl 100 Mcg/2 Ml Sdv) Confirm Administered Dose 100 mcg .ROUTE .[facility]-MED ONE Stop: 11/21/20 16:42 Lactated Ringer's (Ringers, Lactated) 1,000 mls @ 150 mls/hr IV ASDIRECTED [facility] Last Admin: 11/21/20 16:41 Dose: 999 mls/hr Documented by: Oxytocin/Sodium Chloride (Oxytocin 30 Unit In Ns 0.9% 500 Ml Premix) 30 unit in 500 mls @ 500 mls/hr IV TITRATE [facility] Tranexamic Acid 1,000 mg/ (Sodium Chloride) 110 mls @ 660 mls/hr IV ONETIME PRN PRN Reason: Bleeding Ampicillin Sodium 2 gm/ Sodium (Chloride) 100 mls @ 200 mls/hr IV Q6H [facility] Last Admin: 11/22/20 10:39 Dose: 200 mls/hr Documented by: Gentamicin Sulfate 290 mg/ (Sodium Chloride) 107.25 mls @ 200 mls/hr IV Q24H [facility] Last Admin: 11/22/20 19:44 Dose: Not Given Documented by: Clindamycin Phosphate 900 mg/ (Premix) 50 mls @ 100 mls/hr IV Q8H [facility] Last Admin: 11/22/20 09:30 Dose: 100 mls/hr Documented by: Piperacillin Sod/Tazobactam (Sod 4.5 gm/ Sodium Chloride) 100 mls @ 100 mls/hr IV Q6H [facility] Last Admin: 11/24/20 06:26 Dose: 100 mls/hr Documented by: Ibuprofen (Ibuprofen 800 Mg Tab) 800 mg PO Q8H PRN PRN Reason: Cramping Last Admin: 11/23/20 00:16 Dose: 800 mg Documented by: Ibuprofen (Ibuprofen 800 Mg Tab) Confirm Administered Dose 800 mg .ROUTE .STK- MED ONE Stop: 11/23/20 00:15 Last Admin: 11/23/20 02:41 Dose: Not Given Documented by: Ketorolac Tromethamine (Ketorolac 30 Mg/Ml Sdv) 30 mg IVPUSH Q6H [facility] Stop: 11/22/20 17:31 Last Admin: 11/22/20 17:23 Dose: 30 mg Documented by: Lidocaine HCl (Lidocaine 1% 50 Ml Mdv) 50 ml INJECT ONETIME PRN PRN Reason: Laceration repair Lidocaine HCl (Lidocaine 1% 5 Ml Sdv) Confirm Administered Dose 10 ml .ROUTE .STK-MED ONE Stop: 11/21/20 17:55 Methylergonovine Maleate (Methylergonovine 0.2 Mg/1 Ml Amp) 0.2 mg IM ASDIRECTED PRN PRN Reason: Post Hemorrhage Miscellaneous Medication (Phenylephrine Hcl In 0.9% Nacl 1 Mg/10 Ml Syringe) Confirm Administered Dose 2 mg .ROUTE .STK-MED ONE Stop: 11/21/20 17:17 Miscellaneous Medication (Phenylephrine Hcl In 0.9% Nacl 1 Mg/10 Ml Syringe) Confirm Administered Dose 1 mg .ROUTE .STK-MED ONE Stop: 11/21/20 17:38 Miscellaneous Medication (Phenylephrine Hcl In 0.9% Nacl 1 Mg/10 Ml Syringe) Confirm Administered Dose 1 mg .ROUTE .STK-MED ONE Stop: 11/21/20 17:58 Morphine Sulfate (Morphine Pf 10 Mg/10 Ml Sdv) Confirm Administered Dose 10 mg .ROUTE .STK-MED ONE Stop: 11/21/20 16:42 Nalbuphine HCl (Nalbuphine 10 Mg/1 Ml Vial) 10 mg IVPUSH Q1H PRN PRN Reason: Pain (severe 7-10) Octyl Cyanoacrylate (Octyl 2-Cyanoacrylate 1 Tube) Confirm Administered Dose 1 applic .ROUTE .[employer] [facility]-MED ONE Stop: 11/21/20 16:52 Ondansetron HCl (Ondansetron 4 Mg/2 Ml Sdv) 4 mg IVPUSH Q4H PRN PRN Reason: Nausea/Vomiting Ondansetron HCl (Ondansetron 4 Mg/2 Ml Sdv) Confirm Administered Dose 4 mg .ROUTE .[employer] ONE Stop: 11/21/20 17:38 Oxytocin (Oxytocin 10 Units/1 Ml Sdv) Confirm Administered Dose 30 unit .ROUTE .[employer] ONE Stop: 11/21/20 17:38 Ropivacaine (Ropivacaine 0.5% 5 Mg/Ml 30 Ml Sdv) Confirm Administered Dose 30 ml .ROUTE .[employer] ONE Stop: 11/21/20 17:55 Sterile Water (Water For Irrigation,Sterile 1,000 Ml Container) 1,000 ml IRR ASDIRECTED PRN PRN Reason: delivery
== END 2020-11-24 17:15 | disposition home or self-care (01) | DRG 786 ==
LOC: MW.OBCHECK 13:09 → MW.OB 13:10 → OBSVTOIN 17:25 → MW.OB 11-22 03:51
PROVIDERS: ADMIT Obstetrics & Gynecology; ATTEND Obstetrics & Gynecology
PROC: 10D00Z1 Extraction of Products of Conception, Low, Open Approach (ICD-10-PCS; principal; 2020-11-21)
DX: O32.1XX0 Maternal care for breech presentation, not applicable or unspecified (principal); O41.1230 Chorioamnionitis, third trimester, not applicable or unspecified; O23.03 Infections of kidney in pregnancy, third trimester; O99.824 Streptococcus B carrier state complicating childbirth; Z37.0 Single live birth; Z20.822 Contact with and (suspected) exposure to COVID-19; Z3A.38 38 weeks gestation of pregnancy
CPT/HCPCS: 36415; 59025; 64488; 80053; 81001; 83605; 85007; 85014; 85018; 85025; 85027; 86592; 86850; 86900; 86901; 87040; 87086; A9270-GY; J0290; J1580; J1885; J2270; J2370; J2405; J2543; J2590; J2795; J3010; J3490; J7120; U0002